=== PATIENT | male | born 1955 | race Caucasian/White ===

== ENCOUNTER 2017-03-05 08:46 | Emergency (ER) | payer OTHER ==
[2017-03-05 08:51] VITALS: RESP 16
--- NOTE | 2017-03-05 09:08 | EDPHY ---
H & P HPI/ROS: Chief complaint: Left foot injury History of present illness: This is a 61-year-old male who presents to the emergency department for left foot injury. Patient reports injury occurred approximately 2 days ago. He reports he stepped into a hole and twisted his foot. Since then he has had pain. Worse with any sort of twisting motion of the foot. He denies other associated signs or symptoms including no open wounds , no paresthesias and no abnormal coolness to the lower extremity. No other injuries reported. Smoking Status: Never smoked Physical Exam: General appearance: Alert, nontoxic Musculoskeletal: Mild tenderness along the 5th metatarsal proximally and anterior to the lateral malleolus. He is moving the ankle well. He is moving the digits of the foot well. He has good strength in the digits and ankle. The rest the left lower extremities unremarkable. Vascular exam: Normal pulses and capillary refill in the foot Neurologic exam: The patient has normal sensation and motor function distal to the injury. Constitutional: Initial Vital Signs Temperature (C) 36.4 C 03/05/17 08:48 Heart Rate 82 03/05/17 08:48 Respiratory Rate 16 03/05/17 08:48 Blood Pressure 124/81 H 03/05/17 08:48 O2 Sat (%) 96 03/05/17 08:48 O2 Delivery Mode Room Air Allergies/Adverse Reactions: No Known Allergies Allergy (Unverified 09/30/15 07:06) Home Medications: Medication Instructions Recorded Ondansetron Odt [Zofran Odt 4 mg 4 mg PO TID PRN 09/30/15 (*)] Sildenafil Citrate [Viagra] 100 mg PO PRN PRN 09/30/15 oxyCODONE/APAP 5/325 [Percocet] 1 - 2 tab PO Q4-6PRN PRN #11 tab 01/23/16 MDM/Departure - MDM Imaging Results: Imaging Impressions Foot X-Ray 03/05/17 09:02 Impression: Negative for acute fracture with degenerative changes and healed remote tibial and fibular fractures. Left Foot, Three Views Clinical Indications: Pain following trauma. Findings: A fracture is not identified. Prominent degenerative changes with sclerosis and joint space loss are seen involving the articulation of the calcaneus with the cuboid. This does correlate to the region of symptomatology. There is an element of osseous demineralization. Mild soft tissue swelling is noted. Impression: 1. Left foot negative for fracture. 2. Degenerative changes noted in the symptomatic region of the articulation of the calcaneus with the cuboid. With the degenerative changes in the region, undisplaced fracture cannot be entirely excluded. Results called and discussed with KARTHIK Carranza on 03/05/2017 at 10:54 a.m. Ankle X-Ray 03/05/17 09:05 Impression: Negative for acute fracture with degenerative changes and healed remote tibial and fibular fractures. Left Foot, Three Views Clinical Indications: Pain following trauma. Findings: A fracture is not identified. Prominent degenerative changes with sclerosis and joint space loss are seen involving the articulation of the calcaneus with the cuboid. This does correlate to the region of symptomatology. There is an element of osseous demineralization. Mild soft tissue swelling is noted. Impression: 1. Left foot negative for fracture. 2. Degenerative changes noted in the symptomatic region of the articulation of the calcaneus with the cuboid. With the degenerative changes in the region, undisplaced fracture cannot be entirely excluded. Results called and discussed with KARTHIK Carranza on 03/05/2017 at 10:54 a.m. Imaging: Discussed imaging studies w/ call out operator Radiologist, I viewed and interpreted images myself ED Course/Re-evaluation: Patient seen under the supervision of my secondary supervising physician Dr. Enrique Delvalle. Patient presents to the emergency department for left foot and ankle injury. The lower extremity is neurovascularly intact. X-rays are obtained and no acute injuries are noted although this is somewhat limited given significant bony deformity from previous injuries. Patient is wearing a very sturdy hiking boot, I asked him to continue to use these for support of his injury. He is asked to follow up with worker's compensation or orthopedics for recheck. Home care is discussed. Return precautions are given. Patient voiced understanding and agreement with plan. Differential Diagnosis: Included but not limited to contusion, sprain or strain, bony fracture, joint dislocation - Depart Disposition: Home, Routine, Self-Care Clinical Impression: Foot sprain Qualifiers: Encounter type: initial encounter Laterality: left Qualified Code(s): S93.602A - Unspecified sprain of left foot, initial encounter Condition: Good Instructions: Foot Sprain (ED) Additional Instructions: Follow-up with orthopedics for continued evaluation and care Use ibuprofen 600 mg 3 times a day for the next 2-3 days for symptom control If symptoms worsen or new symptoms develop return to the emergency room for recheck Referrals: Joshua Castellanos [Primary Care Provider] - As per Instructions Ritesh Brown MD [Medical Doctor] - As per Instructions
[2017-03-05 11:12] VITALS: BP 117/77; PULSE 57; TEMP 98.1; O2SAT 97
== END 2017-03-05 11:12 | disposition home or self-care (01) ==
DX: S93.602A Unspecified sprain of left foot, initial encounter (principal); W18.42XA Slipping, tripping and stumbling without falling due to stepping into hole or opening, initial encounter; Y92.69 Other specified industrial and construction area as the place of occurrence of the external cause; Y99.0 Civilian activity done for income or pay; Y93.89 Activity, other specified

== ENCOUNTER 2017-04-25 14:48 | Emergency (ER) | payer OTHER ==
[2017-04-25 14:54] VITALS: RESP 16
--- NOTE | 2017-04-25 15:49 | EDPHY ---
H & P Stated Complaint: L KNEE PAIN/SWELLING Time Seen by Provider: 04/25/17 15:19 HPI/ROS: CHIEF COMPLAINT: Left leg redness and swelling HISTORY OF PRESENT ILLNESS: The patient presents to the ED with a 1 day history of left anterior leg redness and swelling with associated left calf pain. The patient denies any history of fall or trauma or overuse. He has no history of gout. The patient states the pain is below his joint. He is able to bear weight. It is worsened with palpation and slightly worsened with ambulation. He denies fever. The patient has had a history of a ankle injury which is scheduled to undergo surgery in January. He has had some decreased range of motion secondary to that injury. The patient denies history of diabetes , immunosuppression or other significant past medical history. The patient states his symptoms are moderate and worsened with movement. REVIEW OF SYSTEMS: A comprehensive 10 point review of systems is otherwise negative aside from elements mentioned in the history of present illness. Source: Patient - Personal History Current Tetanus/Diphtheria Vaccine: Yes Tetanus Vaccine Date: within 10 yrs - Medical/Surgical History Hx Asthma: No Hx Chronic Respiratory Disease: No Hx Diabetes: No Hx Cardiac Disease: No Hx Renal Disease: No Hx Cirrhosis: No Hx Alcoholism: No Hx HIV/AIDS: No Hx Splenectomy or Spleen Trauma: No Other PMH: PSH: hernia; L leg fx; B eye. PMH: diverticulitis - Social History Smoking Status: Never smoked - Physical Exam Exam: General Appearance: Alert, no distress Eyes: Pupils equal and round no pallor or injection ENT, Mouth: Mucous membranes moist Respiratory: There are no retractions, lungs are clear to auscultation Cardiovascular: Regular rate and rhythm Gastrointestinal: Abdomen is soft and nontender, no masses, bowel sounds normal Neurological: A&O, normal motor function, normal sensory exam, normal cranial nerves Skin: Erythematous changes noted to the anterior aspect of the left tib fib below the insertion of the patella and adjacent to the patella tendon. Musculoskeletal: Fairly normal range of motion noted to the left knee, no significant joint effusion, no joint line tenderness Extremities: Left calf tenderness to palpation Constitutional: Initial Vital Signs Temperature (C) 37 C 04/25/17 14:53 Heart Rate 103 H 04/25/17 14:53 Respiratory Rate 16 04/25/17 14:53 Blood Pressure 109/82 H 04/25/17 14:53 O2 Sat (%) 95 04/25/17 14:53 O2 Delivery Mode Room Air Allergies/Adverse Reactions: No Known Allergies Allergy (Unverified 09/30/15 07:06) Home Medications: Medication Instructions Recorded Cephalexin [Keflex] 500 mg PO QID #28 cap 04/25/17 Medical Decision Making - Diagnostics Imaging Results: Imaging Impressions Extremity Venous Study 04/25/17 15:45 Impression: 1. No evidence of deep vein thrombosis. 2. Small Ang's cyst. Findings discussed with Pato Justice 04/25/2017 at 17:13. ED Course/Re-evaluation: The patient presents to the ED for evaluation of right calf pain and swelling erythema. The patient is noted to have no clinical evidence of a septic arthritis and has normal range of motion of his knee. The patient was taken for right lower extremity ultrasound which demonstrates evidence of a small Ang cyst. The patient had inflammatory markers drawn which are within normal limits. The patient is afebrile. The patient was treated with NSAIDs in the emergency department. The patient presents to the ED with infrapatellar redness and tenderness along the anterior aspect of his goldman. There is no obvious abscess or fluctuance. The patient has nothing to suggest a septic arthritis or prepatellar bursitis. The patient will be started on oral antibiotics. I did khangbside Dr. De La Torre from Orthopedic surgery who will check the patient in his office tomorrow. The patient will be instructed to return to the ED for any significant change in his clinical condition. Dr. De La Torre informs me that he can see the patient in his office at 1:00 p.m. tomorrow. The patient will call at 8:30 a.m. in the morning to confirm the appointment. Differential Diagnosis: Differential diagnosis considered includes Ang cyst, DVT, cellulitis, abscess , septic arthritis, pseudogout - Data Points Laboratory Results: Laboratory Results 04/25/17 16:05 04/25/17 15:44 04/25/17 04/25/17 16:05 15:44 WBC 9.33 10^3/uL 10^3/uL (3.80-9.50) RBC 4.61 10^6/uL 10^6/uL (4.40-6.38) Hgb 14.5 g/dL g/dL (13.7-17.5) Hct 41.9 % % (40.0-51.0) MCV 90.9 fL fL (81.5-99.8) MCH 31.5 pg pg (27.9-34.1) MCHC 34.6 g/dL g/dL (32.4-36.7) RDW 13.3 % % (11.5-15.2) Plt Count 254 10^3/uL 10^3/uL (150-400) MPV 8.5 fL L fL (8.7-11.7) Neut % (Auto) 66.4 % % (39.3-74.2) Lymph % (Auto) 21.2 % % (15.0-45.0) Lipscomb % (Auto) 10.2 % % (4.5-13.0) Eos % (Auto) 1.2 % % (0.6-7.6) Baso % (Auto) 0.6 % % (0.3-1.7) Nucleat RBC Rel Count 0.0 % % (0.0-0.2) Absolute Neuts (auto) 6.19 10^3/uL 10^3/uL (1.70-6.50) Absolute Lymphs (auto) 1.98 10^3/uL 10^3/uL (1.00-3.00) Absolute Monos (auto) 0.95 10^3/uL H 10^3/uL (0.30-0.80) Absolute Eos (auto) 0.11 10^3/uL 10^3/uL (0.03-0.40) Absolute Basos (auto) 0.06 10^3/uL 10^3/uL (0.02-0.10) Absolute Nucleated RBC 0.00 10^3/uL 10^3/uL (0-0.01) Immature Gran % 0.4 % % (0.0-1.1) Immature Gran # 0.04 10^3/uL 10^3/uL (0.00-0.10) ESR 10 MM/HR MM/HR (0-20) Sodium 142 mEq/L mEq/L (134-144) Potassium 4.9 mEq/L mEq/L (3.5-5.2) Chloride 108 mEq/L mEq/L (97-110) Carbon Dioxide 19 mEq/l L mEq/l (22-31) Anion Gap 15 mEq/L mEq/L (8-16) BUN 16 mg/dL mg/dL (7-23) Creatinine 0.7 mg/dL mg/dL (0.7-1.3) Estimated GFR > 60 Glucose 88 mg/dL mg/dL (70-100) Calcium 9.4 mg/dL mg/dL (8.5-10.4) C-Reactive Protein 7.9 mg/L mg/L (<10.0) Specimen Hemolysis 213 Medications Given: Discontinued Medications Cephalexin HCl (Keflex) 500 mg PO EDNOW ONE PRN Reason: Protocol Stop: 04/25/17 18:10 Last Admin: 04/25/17 18:21 Dose: 500 mg Ibuprofen (Motrin) 600 mg PO EDNOW ONE Stop: 04/25/17 17:32 Last Admin: 04/25/17 17:38 Dose: 600 mg Ketorolac Tromethamine (Toradol) 30 mg IVP EDNOW ONE Stop: 04/25/17 17:19 Last Admin: 04/25/17 17:31 Dose: Not Given Departure - Departure Disposition: Home, Routine, Self-Care Clinical Impression: Cellulitis Condition: Good Instructions: Cellulitis (ED) Additional Instructions: 1. Take Ibuprofen or Motrin 600 mg by mouth three times a day. 2. Please return to the ED for any worsening symptoms, increasing redness, increasing pain, inability to bear weight or other concerns. 3. Please begin antibiotics as directed. 4. Please contact the orthopedic surgeon you have been referred to, Dr. Mata De La Torre, tomorrow at 8:30 a.m. in the morning. They are expecting your telephone call and will make arrangements to evaluate you at 1:00 p.m.. Referrals: Mata De La Torre MD [Medical Doctor] - As per Instructions Prescriptions: Cephalexin [Keflex] 500 mg PO QID #28 cap
[2017-04-25 16:22] LABS: % IMMATURE GRANULYOCYTES 0.4 % (0.0-1.1); ABSOLUTE IMMATURE GRANULOCYTES 0.04 10^3/uL (0.00-0.10); ADD DIFF? NO; ADD MORPH? NO; ADD SCAN? NO; ATYPICAL LYMPHOCYTE FLAG 0 (0-99); FRAGMENT RBC FLAG 0 (0-99); HEMATOCRIT 41.9 % (40.0-51.0); HEMOGLOBIN 14.5 g/dL (13.7-17.5); LEFT SHIFT FLG 0 (0-99); LIPEMIA HEMOLYSIS FLAG 90 (0-99); MEAN CELL HEMOGLOBIN 31.5 pg (27.9-34.1); MEAN CELL HEMOGLOBIN CONCENTR. 34.6 g/dL (32.4-36.7); MEAN CELL VOLUME 90.9 fL (81.5-99.8); MEAN PLATELET VOLUME 8.5 fL (8.7-11.7); PLATELET CLUMPS FLAG 0 (0-99); PLATELET COUNT 254 10^3/uL (150-400); RED BLOOD CELL COUNT 4.61 10^6/uL (4.40-6.38); RED CELL DISTRIBUTION WIDTH 13.3 % (11.5-15.2)
[2017-04-25 16:38] LABS: SEDIMENTATION RATE 10 MM/HR (0-20)
[2017-04-25 16:42] LABS: ANION GAP 15 mEq/L (8-16); C-REACTIVE PROTEIN 7.9 mg/L (<10.0); CALCIUM 9.4 mg/dL (8.5-10.4); CARBON DIOXIDE 19 mEq/l (22-31); CHLORIDE 108 mEq/L (97-110); CREATININE 0.7 mg/dL (0.7-1.3); GLOMERULAR FILTRATION RATE > 60; GLUCOSE 88 mg/dL (70-100); POTASSIUM 4.9 mEq/L (3.5-5.2); SODIUM 142 mEq/L (134-144)
[2017-04-25 16:53] LABS: SPECIMEN HEMOLYSIS 213
[2017-04-25] MEDS ORDERED: KETOROLAC 30 MG/1 ML SDV IVP ONE (17:18)
[2017-04-25] MEDS ORDERED: IBUPROFEN 600 MG TAB PO ONE (17:31)
[2017-04-25] MEDS ORDERED: CEPHALEXIN 500 MG CAP PO ONE ×2 (18:09→18:31)
[2017-04-25 18:10] VITALS: O2SAT 98
[2017-04-25 18:42] VITALS: BP 135/76; PULSE 81; TEMP 97.9
== END 2017-04-25 18:41 | disposition home or self-care (01) ==
DX: L03.116 Cellulitis of left lower limb (principal)

== ENCOUNTER 2017-08-03 17:30 | Emergency (ER) | payer OTHER ==
[2017-08-03 17:41] VITALS: PULSE 85; RESP 16; TEMP 98.4; O2SAT 96
[2017-08-03 17:42] VITALS: BP 115/80
--- NOTE | 2017-08-03 17:57 | EDPHY ---
H & P Stated Complaint: SENT TO ED POST US FOR BLOOD CLOT Time Seen by Provider: 08/03/17 17:55 HPI/ROS: HPI: This is a 61-year-old male who presents with Chief Complaint: SENT TO ED POST US FOR BLOOD CLOT Location: Left calf Quality: Swelling Duration: 2 weeks Signs and Symptoms: No bleeding, no radiation, no numbness, no weakness, no tingling, no incontinence, no decreased range of motion, + swelling, + pain Timing: Gradual onset Severity: Moderate Context: Patient reports that approximately 3 weeks ago he sustained an injury while at work to the ligament in his left ankle. Two weeks ago he had ligament repair surgery in [place], [place] by Dr. Hill. Today his cast was removed and he was placed in a Alvarez boot, and reported to Dr. Hill that his calf was swollen and he felt constant, nonradiating moderate pain behind his left knee. He was sent to outpatient radiology for ultrasound which shows focal thrombus in the proximal posterior tibial vein of the proximal left calf. He does not have health insurance but is under workmen's Comp at this time. Modifying Factors: See above Comment: ROS: see HPI Constitutional: No fever, no chills, no weight loss Eyes: No blurred vision Respiratory: No shortness of breath, no cough Cardiovascular: No chest pain Gastrointestinal: No nausea, no vomiting no diarrhea Genitourinary: No dysuria Extremities: No myalgias Neurologic: No weakness, no numbness Skin: No rashes Hematologic: No bruising, no bleeding MEDICAL/SURGICAL/SOCIAL HISTORY: PSH: hernia; L leg fx; B eye PMH: diverticulitis Social history: Employed CONSTITUTIONAL: Well-developed well-nourished adult white male, awake and alert , no obvious distress HEENT: Atraumatic and normocephalic, PERRL, EOMI. Tympanic membranes clear. Oropharynx clear, no exudate and moist pink mucosa. Airway patent. No lymphadenopathy. No meningismus. Cardiovascular: Normal S1/S2, regular rate, regular rhythm, without murmur rub or gallop. PULMONARY/CHEST: Symmetrical and nontender. Clear to auscultation bilaterally. Good air movement. No accessory muscle usage. ABDOMEN: Soft, nondistended, nontender, no rebound, no guarding, no peritoneal signs, no masses or organomegaly. No CVAT. EXTREMITIES: 2/2 pulses, left lower leg in Alvarez boot; removed and shows positive Homans sign; left calf larger than the right calf; no palpable cord. Achilles tendon intact. Left KNEE: no effusion, no medial and lateral joint line tenderness, full extension to 180, flexion to 120, no pain with varus and valgus exam. strength 5/5, no deformities, no clubbing, no cyanosis or edema. NEUROLOGICAL: no focal neuro deficits. GCS 15. SKIN: Warm and dry, no erythema. no rash. Good capillary refill. Source: Patient Exam Limitations: No limitations - Personal History Current Tetanus Diphtheria and Acellular Pertussis (TDAP): Yes Tetanus Vaccine Date: within 10 yrs - Medical/Surgical History Hx Asthma: No Hx Chronic Respiratory Disease: No Hx Diabetes: No Hx Cardiac Disease: No Hx Renal Disease: No Hx Cirrhosis: No Hx Alcoholism: No Hx HIV/AIDS: No Hx Splenectomy or Spleen Trauma: No Other PMH: PSH: hernia; L leg fx; B eye. PMH: diverticulitis - Social History Smoking Status: Never smoked Constitutional: Initial Vital Signs Temperature (C) 36.9 C 08/03/17 17:37 Heart Rate 85 08/03/17 17:37 Respiratory Rate 16 08/03/17 17:37 Blood Pressure 115/80 08/03/17 17:37 O2 Sat (%) 96 08/03/17 17:37 O2 Delivery Mode Room Air Allergies/Adverse Reactions: No Known Allergies Allergy (Unverified 08/03/17 17:42) Home Medications: Medication Instructions Recorded Cephalexin [Keflex] 500 mg PO QID #28 cap 04/25/17 Asa 08/03/17 Oxycodone 08/03/17 Rivaroxaban [Xarelto] 1 each PO CONT #1 tab.ds.pk 08/03/17 Medical Decision Making - Diagnostics Imaging Results: Imaging Impressions Extremity Venous Study 08/03/17 16:00 Impression: 1. Focal thrombus involving posterior tibial veins in the proximal calf. No additional evidence of DVT left lower extremity. Findings discussed with Latonya physician geothermal system installer working with ROCCO Doyle at 17:12 hour, 08/03/2017. ED Course/Re-evaluation: Ultrasound report reviewed. provoked DVT I-STAT creatinine level obtained and 0.8 Patient refers oral therapy; Xarelto 15 mg and prepack given. No signs of neurovascular compromise/tenting of skin/compartment syndrome/ extremities and joints examined above and below area of concern and are neurovascularly intact/cellulitis/hypoxia/respiratory distress. Differential Diagnosis: ED differential diagnosis includes but is not limited to chronic kidney disease , DVT. Departure - Departure Disposition: Home, Routine, Self-Care Clinical Impression: Left leg DVT Qualifiers: Affected thrombotic vein of extremity: tibial Chronicity: acute Qualified Code( s): I82.442 - Acute embolism and thrombosis of left tibial vein Condition: Good Instructions: Rivaroxaban (By mouth), Deep Venous Thrombosis (ED) Additional Instructions: Follow-up with Orthopedics as previously planned. Take Xarelto 15 mg orally twice daily x3 weeks and then 20 mg daily for 3-6 months. The length of time to take Xarelto will be determined by primary care provider with consultation from Orthopedics. The x-rays obtained in the emergency department today demonstrate no evidence of an obvious fracture. Sometimes fractures are not obvious on the initial set of x-rays performed in the ED. For this reason, you should have repeat x-rays performed in 7-10 days if you are having any pain exclude the possibility of an occult fracture. Referrals: AMIRA HILL [Non Staff Provider ()] - As per Instructions Prescriptions: Rivaroxaban [Xarelto] 1 each PO CONT #1 tab.ds.pk
[2017-08-03] MEDS ORDERED: RIVAROXABAN 15 MG TAB PO ONE (18:23)
== END 2017-08-03 18:30 | disposition home or self-care (01) ==
DX: I82.442 Acute embolism and thrombosis of left tibial vein (principal); Z79.82 Long term (current) use of aspirin
CPT/HCPCS: 82947-QW

== ENCOUNTER 2017-10-24 17:17 | Emergency (ER) | payer OTHER ==
[2017-10-24 17:28] VITALS: TEMP 97.9
--- NOTE | 2017-10-24 17:31 | EDPHY ---
H & P Stated Complaint: LLE pain Source: Patient Exam Limitations: No limitations - Personal History Current Tetanus/Diphtheria Vaccine: Yes Current Tetanus Diphtheria and Acellular Pertussis (TDAP): Yes Tetanus Vaccine Date: within 10 yrs - Medical/Surgical History Hx Asthma: No Hx Chronic Respiratory Disease: No Hx Diabetes: No Hx Cardiac Disease: No Hx Renal Disease: No Hx Cirrhosis: No Hx Alcoholism: No Hx HIV/AIDS: No Hx Splenectomy or Spleen Trauma: No Other PMH: PSH: hernia; L leg fx; B eye, L leg DVT. PMH: diverticulitis - Social History Smoking Status: Never smoked Time Seen by Provider: 10/24/17 17:30 HPI/ROS: HPI: This is a 61-year-old male who presents with Chief Complaint: LLE pain Location: Left foot Quality: Pain Duration: Since this morning Signs and Symptoms: No bleeding, no radiation, no numbness, no weakness, no tingling, no incontinence, + decreased range of motion, no swelling, + pain Timing: Acute on chronic Severity: 05/13 Context: Patient presents with complaints of left foot pain primarily on the lateral aspect and the ball of his foot since waking up this morning. He reports that approximately 3 months ago he had peroneal tendon tear and status post repair from a workman's comp injury performed by Dr. Hill out of [facility]. Patient has a history of DVT secondary to nerve block with orthopedic surgery but is no longer taking any anticoagulation. He does not want any opiate medications. He denies any recent activity/trauma. Denies fever/paresthesias/skin color changes. Patient saw Dr. Hill approximately 7 days ago and was told that he was making progress improving. He has a physical therapy poorly appointment tomorrow morning. Takes Lyrica for nerve pain but is not helping this pain at all. Patient feels like he is having a muscle spasm or cramp in his left foot Modifying Factors: Lyrica no relief Comment: ROS: see HPI Constitutional: No fever, no chills, no weight loss Eyes: No blurred vision Respiratory: No shortness of breath, no cough Cardiovascular: No chest pain Gastrointestinal: No nausea, no vomiting no diarrhea Genitourinary: No dysuria Extremities: No myalgias Neurologic: No weakness, no numbness Skin: No rashes Hematologic: No bruising, no bleeding MEDICAL/SURGICAL/SOCIAL HISTORY: PSH: hernia repair; L leg fx; B eye, L leg DVT PMH: diverticulitis Social history: Current disabled due to workman's Comp injury CONSTITUTIONAL: Nontoxic-appearing polite and cooperative adult white male, awake and alert, no obvious distress HEENT: Atraumatic and normocephalic, PERRL, EOMI. Tympanic membranes clear. Oropharynx clear, no exudate and moist pink mucosa. Airway patent. No lymphadenopathy. No meningismus. Cardiovascular: Normal S1/S2, tachycardia, regular rhythm, without murmur rub or gallop. PULMONARY/CHEST: Symmetrical and nontender. Clear to auscultation bilaterally. Good air movement. No accessory muscle usage. ABDOMEN: Soft, nondistended, nontender, no rebound, no guarding, no peritoneal signs, no masses or organomegaly. No CVAT. EXTREMITIES: 2/2 DP and PT pulses, pedal strength 5/5, left foot: Well-healed lateral incision with mild induration but no drainage/fluctuance/warmth. Toes are actively cramping. Mild calf tenderness. Left Ankle: Plantar flexion to 50 , dorsiflexion to 20. Foot inversion to 35 degree. No tenderness/swelling Anterior talofibular ligament. No tenderness/swelling Calcaneofibular ligament , no tenderness/swelling posterior talofibular ligament, no tenderness/swelling posterior inferior tibiofibular ligament. Achilles tendon intact. no deformities , no clubbing, no cyanosis or edema. NEUROLOGICAL: no focal neuro deficits. GCS 15. SKIN: Warm and dry, no erythema. no rash. Good capillary refill. (Jocelin,Terra) Constitutional: Initial Vital Signs Temperature (C) 36.6 C 10/24/17 17:25 Heart Rate 132 H 10/24/17 17:25 Respiratory Rate 16 10/24/17 17:25 Blood Pressure 142/101 H 10/24/17 17:25 O2 Sat (%) 96 10/24/17 17:25 O2 Delivery Mode Room Air Allergies/Adverse Reactions: No Known Allergies Allergy (Unverified 08/03/17 17:42) Home Medications: Medication Instructions Recorded Aspirin EC [Aspirin EC 81 mg (*)] 81 mg PO DAILY #20 tab 10/24/17 Lyrica 10/24/17 Metaxalone [Skelaxin 800 mg (*)] 800 mg PO TID PRN #12 tab 10/24/17 Medical Decision Making - Diagnostics Imaging Results: Imaging Impressions Extremity Venous Study 10/24/17 17:37 Impression: 1. No evidence of deep vein thrombosis in the left lower extremity. 2. Superficial thrombophlebitis in the left calf. Foot X-Ray 10/24/17 17:37 Impression: 1. Negative for fracture. 2. See above report for additional findings. If symptoms persist, MRI could be considered for further evaluation. ED Course/Re-evaluation: Left foot x-ray, left lower extremity ultrasound, oral medications ordered Vital signs reviewed upon arrival and show tachycardia. Patient given Celebrex and PO Valium 5 mg No signs of neurovascular compromise/tenting of skin/compartment syndrome/ extremities and joints examined above and below area of concern and are neurovascularly intact/cellulitis/thrombophlebitis. Left foot x-ray my read shows no signs of fracture/dislocation, + degenerative changes Called by radiologist who advised the left lower extremity ultrasound shows no deep venous thrombosis does shows superficial thrombosis in the left calf in the gastrocnemius vein. After further questioning patient reports he is supposed to be taking baby aspirin daily which he is not. I have encouraged him to do this. He is also supposed to be wearing compression stockings which he is not and I have also encouraged him to do that as well. Vital signs repeated at discharge in have significantly improved. This patient was seen under the supervision of my primary supervising physician. I evaluated care for this patient independently. (Sandie Monreal) Differential Diagnosis: differential diagnosis includes but is not limited to muscle spasm, postoperative pain, deep venous thrombosis, musculoskeletal strain. (Sandie Monreal) - Data Points Medications Given: Discontinued Medications Celecoxib (Celebrex) 100 mg PO ONCE ONE Stop: 10/24/17 17:39 Last Admin: 10/24/17 18:13 Dose: 100 mg Diazepam (Valium) 5 mg PO EDNOW ONE Stop: 10/24/17 17:38 Last Admin: 10/24/17 17:47 Dose: 5 mg Departure - Departure Disposition: Home, Routine, Self-Care Clinical Impression: Status post left foot surgery, Chronic superficial venous thrombosis of left lower extremity Condition: Good Instructions: Pain Management After Surgery (DC) Additional Instructions: Apply moist, warm heat to the area of discomfort. Please take your baby aspirin daily as directed previously for superficial thrombosis in your left calf. Wear compression stockings while ambulatory. Elevate your legs to decrease swelling. Limit your salt intake. Use muscle relaxers every 8 hr as needed for muscle spasm. Please keep follow-up appointment tomorrow with your physical therapist and Orthopedist. Referrals: Zac Ham MD [Primary Care Provider] - As per Instructions AMIRA HILL [Non Staff Provider ()] - As per Instructions Prescriptions: Aspirin EC [Aspirin EC 81 mg (*)] 81 mg PO DAILY #20 tab Metaxalone [Skelaxin 800 mg (*)] 800 mg PO TID PRN #12 tab PRN Reason: Spasms
[2017-10-24] MEDS ORDERED: DIAZEPAM 5 MG TAB PO ONE (17:37)
[2017-10-24 19:05] VITALS: BP 117/87; PULSE 97; RESP 18; O2SAT 94
== END 2017-10-24 19:24 | disposition home or self-care (01) ==
DX: I82.812 Embolism and thrombosis of superficial veins of left lower extremity (principal); Z98.890 Other specified postprocedural states

== ENCOUNTER 2017-10-25 03:24 | Emergency (ER) | payer OTHER ==
[2017-10-25 03:33] VITALS: BP 125/90; PULSE 89; RESP 19; TEMP 98.2; O2SAT 95
--- NOTE | 2017-10-25 03:39 | EDPHY ---
H & P Stated Complaint: L left/ankle pain, worsening pain HPI/ROS: HPI CHIEF COMPLAINT: LLE PAIN HISTORY OF PRESENT ILLNESS: Patient is 61-year-old male, presents emergency room with left lower extremity pain. Patient was seen here earlier tonight had an x-ray of the left foot, additionally had an ultrasound this showed superficial thrombophlebitis. But no DVT. Patient presents back to the emergency room this evening for left lower extremity pain. Patient reports to me that he was unable to get his aspirin or Skelaxin prescription filled tonight as the pharmacy was closed and he did not want to go to any other pharmacy. He states he is not take any pain med this evening comes back with left foot pain. He states he has chronic left foot pain from a surgery to repair his peroneal tendon injury. I did review his recent ER visit. At time he had unremarkable foot x-ray, ultrasound that showed a superficial thrombophlebitis. However no DVT. He denies any further swelling or pain in his calf. His main complaint is left lateral foot pain. Upon arrival to the emergency room he asked me if I can give him narcotic pain medicine explained I cannot do this. I am more than happy to give him anti- inflammatory pain medicine here. He has agreed for this. Past Medical History: diverticulitis, left lower extremity pain Past Surgical History: Remote history of left lower extremity are foot surgery. Social History: Denies daily use of drugs alcohol tobacco. Family History: Noncontributory. ROS REVIEW OF SYSTEMS: A comprehensive 10 point review of systems is otherwise negative aside from elements mentioned in the history of present illness. Exam Constitutional triage nursing summary reviewed, vital signs reviewed, awake/ alert. Eyes normal conjunctivae and sclera, EOMI, PERRLA. HENT normal inspection, atraumatic, moist mucus membranes, no epistaxis, neck supple/ no meningismus, no raccoon eyes. Respiratory clear to auscultation bilaterally, normal breath sounds, no respiratory distress, no wheezing. Cardiovascular rate normal, regular rhythm, no murmur, no edema, distal pulses normal. Gastrointestinal soft, non-tender, no rebound, no guarding, normal bowel sounds, no distension, no pulsatile mass. Genitourinary no CVA tenderness. Musculoskeletal left foot: The left foot is neurovascular intact. Good distal pulse. Good cap refill. Tender palpation over the lateral left foot he inferior to the left lateral malleolus. Very mild erythema however he tells me this is chronically here for the past 90 days. No new erythema or swelling. He denies any fever. No drainage. no midline vertebral tenderness, full range of motion, no calf swelling, no tenderness of extremities, no meningismus, good pulses, neurovascularly intact. Skin pink, warm, & dry, no rash, skin atraumatic. Neurologic awake, alert and oriented x 3, AAOx3, moves all 4 extremities equally, motor intact, sensory intact, CN II-XII intact, normal cerebellar, normal vision, normal speech. Psychiatric normal mood/affect. Heme/Lymph/Immune no lymphadenopathy. Differential Diagnosis: Includes but is not limited to in a particular order: Chronic left foot pain, acute on chronic left foot pain, pain from superficial thrombophlebitis, infection. Medical Decision Making: Plan for this patient he was just here in emergency room earlier and had a workup. I reviewed that ER record. I will give a dose of 800 mg Motrin here in urgency for pain control which he is agreeable for. I recommend that he elevates his foot rest, ice it. Follows up with his foot surgeon or workman's Comp. He understands do so. Additionally return precautions discussed. Return if worsening symptoms questions or concerns. Patient did request narcotic pain medicine which I have declined to give him. He is also driving home. I have given him a dose of 800 mg of Motrin. I encouraged him to get his prescriptions filled. Source: Patient - Personal History Tetanus Vaccine Date: within 10 yrs - Medical/Surgical History Hx Asthma: No Hx Chronic Respiratory Disease: No Hx Diabetes: No Hx Cardiac Disease: No Hx Renal Disease: No Hx Cirrhosis: No Hx Alcoholism: No Hx HIV/AIDS: No Hx Splenectomy or Spleen Trauma: No Other PMH: PSH: hernia; L leg fx; B eye, L leg DVT. PMH: diverticulitis - Social History Smoking Status: Never smoked Constitutional: Initial Vital Signs Temperature (C) 36.8 C 10/25/17 03:26 Heart Rate 89 10/25/17 03:26 Respiratory Rate 19 10/25/17 03:26 Blood Pressure 125/90 H 10/25/17 03:26 O2 Sat (%) 95 10/25/17 03:26 O2 Delivery Mode Room Air Allergies/Adverse Reactions: No Known Allergies Allergy (Verified 10/25/17 03:25) Home Medications: Medication Instructions Recorded Aspirin EC [Aspirin EC 81 mg (*)] 81 mg PO DAILY #20 tab 10/24/17 Lyrica 10/24/17 Metaxalone [Skelaxin 800 mg (*)] 800 mg PO TID PRN #12 tab 10/24/17 Departure - Departure Disposition: Home, Routine, Self-Care Clinical Impression: Foot pain Condition: Good Instructions: Arthralgia (ED) Additional Instructions: 1. Follow up with your primary care doctor. 2. Please get her prescriptions filled. 3. Return emergency room if you have worsening symptoms questions or concerns. Referrals: Zac Ham MD [Primary Care Provider] - As per Instructions
[2017-10-25] MEDS ORDERED: IBUPROFEN 800 MG TAB PO ONE ×2 (03:46→03:48)
== END 2017-10-25 04:06 | disposition home or self-care (01) ==
DX: M79.672 Pain in left foot (principal); Z79.82 Long term (current) use of aspirin

== ENCOUNTER 2017-10-27 00:39 | Emergency (ER) | payer OTHER ==
[2017-10-27 00:48] VITALS: TEMP 99.3
--- NOTE | 2017-10-27 01:17 | EDPHY ---
H & P Stated Complaint: sympathetic nerve block for L foot this am, since pain increasing dramatica Time Seen by Provider: 10/27/17 00:57 HPI/ROS: HPI The patient presents with left foot pain which he has had since July when he had a tendon repair performed at [facility] in [place]. This pain became worse today, several hours ago after being seen at the [facility] and having a sympathetic nerve block performed in his lower lumbar spine by Dr. Mendiola. He says over the last 1 day he has had increasing swelling and redness of his lateral left foot as well. He denies any fevers or chills, nausea or vomiting. He denies any new injury. He had a provoked DVT which was treated with Xarelto, currently taking only aspirin. He also says he was diagnosed with cellulitis of the foot and has been on antibiotics, last about a month ago. He is currently taking Lyrica and Skelaxin for his pain without much improvement in his symptoms.. REVIEW OF SYSTEMS Constitutional: No fever, no chills. Eyes: No discharge. ENT: No sore throat. Cardiovascular: No chest pain, no palpitations. Respiratory: No cough, no shortness of breath. Gastrointestinal: No abdominal pain, no vomiting. Genitourinary: No hematuria. Musculoskeletal: No back pain. Skin: No rashes. Neurological: No headache. PMHx: Left foot tendon repair performed in July PHYSICAL General Appearance: Alert, no distress Eyes: Pupils equal and round no pallor or injection ENT, Mouth: Mucous membranes moist Respiratory: There are no retractions, lungs are clear to auscultation Cardiovascular: Regular rate and rhythm Gastrointestinal: Abdomen is soft and non-tender, no masses, bowel sounds normal Neurological: A&O, moves all extremities Skin: Warm and dry, no rashes Musculoskeletal: Neck is supple non tender Extremities: Left foot is erythematous on the lateral aspect and tender to palpation, there is edema throughout the foot without any leg edema, foot is slightly warm Psychiatric: Patient is oriented X 3, there is no agitation Source: Patient Exam Limitations: No limitations - Personal History Tetanus Vaccine Date: within 10 yrs - Medical/Surgical History Hx Asthma: No Hx Chronic Respiratory Disease: No Hx Diabetes: No Hx Cardiac Disease: No Hx Renal Disease: No Hx Cirrhosis: No Hx Alcoholism: No Hx HIV/AIDS: No Hx Splenectomy or Spleen Trauma: No Other PMH: PSH: hernia; L leg fx; B eye, L leg DVT. PMH: diverticulitis - Social History Smoking Status: Never smoked Constitutional: Initial Vital Signs Temperature (C) 37.4 C 10/27/17 00:43 Heart Rate 98 10/27/17 00:43 Respiratory Rate 18 10/27/17 00:43 Blood Pressure 115/70 10/27/17 00:43 O2 Sat (%) 95 10/27/17 00:43 O2 Delivery Mode Room Air Allergies/Adverse Reactions: No Known Allergies Allergy (Verified 10/27/17 00:48) Home Medications: Medication Instructions Recorded Aspirin EC [Aspirin EC 81 mg (*)] 81 mg PO DAILY #20 tab 10/24/17 Lyrica 10/24/17 Metaxalone [Skelaxin 800 mg (*)] 800 mg PO TID PRN #12 tab 10/24/17 Cephalexin [Keflex (*)] 500 mg PO Q6H #28 cap 10/27/17 Medical Decision Making - Diagnostics Imaging Results: DVT ultrasound left leg shows gastrocnemius thrombosis, unchanged from prior ultrasound 3 days ago, discussed with Dr. Martell of Radiology. Imaging: Discussed imaging studies w/ call worker person Radiologist Differential Diagnosis: 61-year-old male, status post left foot tendon repair of some sort performed in July of 2017, complicated by DVT, and ongoing pain, now presents with increasing pain. He says this is associated with increased redness, edema of the foot. However, he says his foot has had this appearance previously when he has seen the orthopedic doctor and he has been told that this is normal postoperative course. Differential diagnosis includes DVT, cellulitis, foot abscess, chronic pain. In the emergency department, labs were checked and did reveal a very mild leukocytosis. DVT ultrasound was repeated and showed same gastrocnemius thrombosis. Because of his leukocytosis, I will treat with antibiotics. I will give a dose of Ancef here followed by Keflex. There is no purulence of the wound. I have advised him that he should follow up with his orthopedic doctor to re-evaluate for any infection. He will need a repeat ultrasound in 1- 2 weeks to evaluate for any propagation of the gastrocnemius thrombosis. There is no compelling evidence that the patient needs anticoagulation currently for this sort of thrombosis. I have explained this to him. - Data Points Laboratory Results: Laboratory Results 10/27/17 01:17 10/27/17 01:17 10/27/17 10/27/17 01:17 01:17 WBC 11.47 10^3/uL H 10^3/uL (3.80-9.50) RBC 4.78 10^6/uL 10^6/uL (4.40-6.38) Hgb 15.2 g/dL g/dL (13.7-17.5) Hct 42.8 % % (40.0-51.0) MCV 89.5 fL fL (81.5-99.8) MCH 31.8 pg pg (27.9-34.1) MCHC 35.5 g/dL g/dL (32.4-36.7) RDW 13.1 % % (11.5-15.2) Plt Count 222 10^3/uL 10^3/uL (150-400) MPV 8.3 fL L fL (8.7-11.7) Neut % (Auto) 68.6 % % (39.3-74.2) Lymph % (Auto) 19.1 % % (15.0-45.0) Evans % (Auto) 10.8 % % (4.5-13.0) Eos % (Auto) 0.4 % L % (0.6-7.6) Baso % (Auto) 0.7 % % (0.3-1.7) Nucleat RBC Rel Count 0.0 % % (0.0-0.2) Absolute Neuts (auto) 7.86 10^3/uL H 10^3/uL (1.70-6.50) Absolute Lymphs (auto) 2.19 10^3/uL 10^3/uL (1.00-3.00) Absolute Monos (auto) 1.24 10^3/uL H 10^3/uL (0.30-0.80) Absolute Eos (auto) 0.05 10^3/uL 10^3/uL (0.03-0.40) Absolute Basos (auto) 0.08 10^3/uL 10^3/uL (0.02-0.10) Absolute Nucleated RBC 0.00 10^3/uL 10^3/uL (0-0.01) Immature Gran % 0.4 % % (0.0-1.1) Immature Gran # 0.05 10^3/uL 10^3/uL (0.00-0.10) Sodium 142 mEq/L mEq/L (135-145) Potassium 4.4 mEq/L mEq/L (3.5-5.2) Chloride 102 mEq/L mEq/L (97-110) Carbon Dioxide 25 mEq/l mEq/l (22-31) Anion Gap 15 mEq/L mEq/L (8-16) BUN 19 mg/dL mg/dL (7-23) Creatinine 0.8 mg/dL mg/dL (0.7-1.3) Estimated GFR > 60 Glucose 94 mg/dL mg/dL (70-100) Calcium 9.2 mg/dL mg/dL (8.5-10.4) Total Bilirubin 1.2 mg/dL mg/dL (0.1-1.4) AST 28 IU/L IU/L (17-59) ALT 37 IU/L IU/L (21-72) Alkaline Phosphatase 71 IU/L IU/L (38-126) Total Protein 7.4 g/dL g/dL (6.3-8.2) Albumin 4.3 g/dL g/dL (3.5-5.0) Medications Given: Discontinued Medications Cefazolin Sodium/Dextrose (Ancef 1 Gm (Premix)) 50 mls @ 200 mls/hr IV EDNOW ONE PRN Reason: Protocol Stop: 10/27/17 02:47 Last Admin: 10/27/17 02:44 Dose: 50 mls Ondansetron HCl (Zofran Odt) 4 mg PO EDNOW ONE Stop: 10/27/17 02:21 Last Admin: 10/27/17 02:28 Dose: 4 mg Departure - Departure Disposition: Home, Routine, Self-Care Clinical Impression: Pain, foot, left, chronic, Edema of left foot Condition: Good Instructions: Cellulitis (ED) Additional Instructions: The cause of your pain could be related to cellulitis she is a foot infection. Because of this, I would like for you to follow up with your orthopedist. I have prescribed a course of antibiotics for you. On your ultrasound today, we again saw the gastrocnemius clot. Because of this you should have a repeat ultrasound in 1-2 weeks to see if it is getting smaller. Referrals: Zac Ham MD [Primary Care Provider] - As per Instructions Prescriptions: Cephalexin [Keflex (*)] 500 mg PO Q6H #28 cap
[2017-10-27 01:26] LABS: PLATELET COUNT 222 10^3/uL (150-400)
[2017-10-27] MEDS ORDERED: ONDANSETRON DISINTEGRATING 4 MG TAB PO ONE (02:20)
[2017-10-27 03:01] VITALS: BP 107/79; PULSE 86; RESP 16; O2SAT 96
== END 2017-10-27 03:00 | disposition home or self-care (01) ==
DX: M79.672 Pain in left foot (principal); R60.0 Localized edema; Z79.82 Long term (current) use of aspirin
CPT/HCPCS: 96365; J0690

== ENCOUNTER 2017-10-29 12:16 | Inpatient (IN) | payer OTHER ==
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
[2017-10-29] MEDS ORDERED: NS 1,000 ML IV ONE (13:40)
[2017-10-29 13:45] LABS: PLATELET COUNT 341 10^3/uL (150-400)
[2017-10-29] MEDS ORDERED: DESIPRAMINE HCL 10 MG TAB PO PRN (14:38)
[2017-10-29] MEDS ORDERED: ONDANSETRON 4 MG/2 ML VIAL IVP PRN ×2 (14:40→21:17)
[2017-10-29] MEDS ORDERED: ACETAMINOPHEN 325 MG TAB PO PRN (14:40)
[2017-10-29] MEDS ORDERED: ONDANSETRON DISINTEGRATING 4 MG TAB PO PRN (14:40)
[2017-10-29] MEDS ORDERED: GADOBUTROL 10 ML VIAL IVP ONE (14:56)
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
--- NOTE | 2017-10-29 16:19 | PDMN ---
Medical Necessity Medical necessity: M70 cellulitis failed outpt tx with persistent L ankle swelling, erythema and pain - poss Post op infection ID consult pending, ortho consult pending
[2017-10-29] MEDS ORDERED: NS 1,000 ML IV SCH (16:45)
[2017-10-29] MEDS ORDERED: KETOROLAC 30 MG/1 ML SDV IVP PRN (16:54)
[2017-10-29] MEDS: oxyCODONE IR 5 MG TAB PO PRN (16:55)
[2017-10-29] MEDS ORDERED: D5W 1/2 NS W/ 20 KCl/L 1,000 ML IV SCH (17:00)
--- NOTE | 2017-10-29 17:41 | SOAPPROG ---
SOAP Progress Note Assessment/Plan: Assessment: Plan: 10/29/17 17:40 Abscess and possibly osteomyelitis of left lateral mid and hind foot. Urgent I + D tonight. Objective: Vital Signs Temp Pulse Resp BP Pulse Ox 36.7 C 88 15 137/99 H 96 10/29/17 16:11 10/29/17 16:11 10/29/17 16:11 10/29/17 16:11 10/29/17 16:11 10/28/17 10/29/17 10/30/17 05:59 05:59 05:59 Intake Total 200 Balance 200 ICD10 Worksheet Patient Problems: Problems Problem Status Onset Left ankle pain Acute Bilateral pneumonia Acute Dehydration Acute Syncope Acute
--- NOTE | 2017-10-29 18:37 | GCON ---
[f rep st] CONSULTATION DATE OF CONSULTATION: 10/29/2017 HISTORY: Arnold is a 61-year-old gentleman who over the past 3 months or so has had a persistent pr oblem secondary to reconstructive surgery on his lateral hindfoot in the peroneal tendons, left side. His surgery was complicated by a subsequent DVT and treatment with systemic anticoagulation. His f oot has become increasingly painful. Apparently, the surgeon who had treated him at [facility] did not care for the patient adequately per the patient's interpretation of events. He presented to Dr. Saw Medina today who identified significant cellulitis in the ankle. [facility] he did have a MRI which revealed high likelihood osteomyelitis and joint involveme nt of the calcaneocuboid joint. There is additional fluid tracking along the peroneal longus tendon up toward the lateral malleolus. He has elevated white count with left shift and elevated sedimentat ion rate consistent with infectious process. I was asked to see him for orthopedic specialty consult ation based on this. His past history includes open fracture of the left distal tibia, treated with an external fixator fr vince. This has left him with a clinical deformity but normal function according to the patient. He i s not able to eat or drink for the last several days due to the amount of discomfort he is in regardi ng his ankle related to this present condition. EXAMINATION: Left ankle is markedly swollen and inflamed and edematous and erythematous on the later al aspect only. He has no demonstrable dorsiflexion and plantarflexion of the foot secondary to disc omfort. He has a grossly normal sensory examination in the plantar, tibial, peroneal, sural nerve di stributions. He has an incompletely healed lateral ankle, style incision at the lateral h indfoot. The majority of the tissue is sealed but, unfortunately, there are some scabs and some area of incomplete dermal bridging. There is no drainage, however. IMAGING: I reviewed the patient's MRI. This shows signal intensity within the distal lateral calcan eus and the proximal lateral cuboid consistent with infection in the joint and potentially osteomyeli tis at that location. IMPRESSION/RECOMMENDATIONS: Two small abscesses additionally are along the peroneal tendons plus wha t appears to be joint infection at the calcaneocuboid joint. Due to the severity of the patient's symptoms, we plan for I and D procedure. I will open this dista lly at the calcaneocuboid joint to wash this out and take deep cultures and then initiate antibiotic therapy. We will plan to do this on an urgent basis this evening. /[id number]/MODL
[2017-10-29] MEDS ORDERED: POLYMYXIN B SULFATE 500,000 UNIT/10 ML SYR IRR ONE (19:18)
[2017-10-29] MEDS ORDERED: BACITRACIN 50,000 UNITS/10 ML SYR IRR ONE (19:18)
[2017-10-29] MEDS ORDERED: BUPIVACAINE 0.25% 30 ML SDV ONE (19:18)
[2017-10-29] MEDS ORDERED: LR 1,000 ML IV ONE (19:59)
--- NOTE | 2017-10-29 20:10 | PDANEPAE ---
ANE History of Present Illness left ankle I&D ANE Past Medical History - Cardiovascular History Hx Hypertension: No Hx Arrhythmias: No Hx Chest Pain: No Hx Coronary Artery / Peripheral Vascular Disease: No Hx CHF / Valvular Disease: No Hx Palpitations: No - Pulmonary History Hx COPD: No Hx Asthma/Reactive Airway Disease: No Hx Recent Upper Respiratory Infection: No Hx Oxygen in Use at Home: No Hx Sleep Apnea: No Sleep Apnea Screening Result - Last Documented: Negative - Endocrine History Hx Diabetes: No Hypothyroid: No Hyperthyroid: No Obesity: no - Chronic Pain History Chronic Pain: No ANE Review of Systems Review of systems is: negative Review of Systems: - Exercise capacity Exercise capacity: >=4 METS ANE Patient History - Allergies Allergies/Adverse Reactions: No Known Allergies Allergy (Verified 10/27/17 00:48) - Home Medications Home medications: home medication list seen and reviewed Home Medications: Pregabalin [Lyrica 150mg (*)] 150 mg PO BID 10/24/17 [Last Taken 10/29/17 06:00] Desipramine HCl [Norpramin 10 mg (*)] 10 - 20 mg PO HS PRN 10/29/17 [Last Taken 3 Days Ago ~10/26/17] [id number] Compounded Cream 1 - 3 g TP Q6-8PRN PRN 10/29/17 [Last Taken 10/28/17] Pregabalin [Lyrica 75mg (*)] 75 mg PO BID 10/29/17 [Last Taken 10/29/17 06:00] Sildenafil Citrate [Viagra] 100 mg PO DAILY PRN 10/29/17 [Last Taken Unknown] - NPO status NPO Since - Liquids (Date): 10/27/17 NPO Since - Solids (Date): 10/27/17 - Anes Hx Anes Hx: no prior problems - Smoking Hx Smoking Status: Never smoked ANE Labs/Vital Signs - Labs Result Diagrams: 10/29/17 13:30 10/29/17 13:30 - Vital Signs Blood Pressure: 125/76 Heart Rate: 74 Respiratory Rate: 16 O2 Sat (%): 94 Height: 172.72 cm Weight: 66.8 kg ANE Physical Exam - Airway Neck exam: FROM Mallampati Score: Class 1 Mouth exam: normal dental/mouth exam - Pulmonary Pulmonary: no respiratory distress - Cardiovascular Cardiovascular: regular rate and rhythym - ASA Status ASA Status: II, E ANE Anesthesia Plan Anesthesia Plan: GA w LMA
[2017-10-29] MEDS ORDERED: MIDAZOLAM 2 MG/2 ML VIAL ONE (20:44)
[2017-10-29] MEDS ORDERED: fentaNYL 100 MCG/2 ML INJ ONE ×3 (20:47→21:52)
[2017-10-29] MEDS ORDERED: PROPOFOL 200 MG/20 ML VIAL ONE (20:47)
[2017-10-29] MEDS ORDERED: LIDOCAINE 2% 5 ML SDV ONE (20:48)
[2017-10-29] MEDS ORDERED: MIDAZOLAM 2 MG/2 ML VIAL IVP ONE (20:50)
[2017-10-29] MEDS ORDERED: KETOROLAC 30 MG/1 ML SDV ONE (20:53)
[2017-10-29] MEDS ORDERED: ONDANSETRON 4 MG/2 ML VIAL ONE (20:53)
[2017-10-29] MEDS ORDERED: DEXAMETHASONE 4 MG/ML VIAL ONE (20:53)
[2017-10-29] MEDS ORDERED: ALBUTEROL 3 ML DEYVIAL IH PRN (21:17)
[2017-10-29] MEDS ORDERED: PROMETHAZINE HCL 25 MG/ML INJ IVP PRN (21:17)
[2017-10-29] MEDS ORDERED: HYDROmorphONE/DILAUDID 1 MG/ML INJ IVP PRN (21:17)
[2017-10-29] MEDS ORDERED: LABETALOL HCL 5 MG/ML 20 ML MDV IVP PRN (21:17)
[2017-10-29] MEDS ORDERED: HYDROCODONE/APAP 5/325 TAB PO PRN (21:17)
[2017-10-29] MEDS ORDERED: METOCLOPRAMIDE 10 MG/2 ML VIAL IVP PRN (21:17)
[2017-10-29] MEDS ORDERED: OXYCODONE/APAP 5/325 TAB PO PRN (21:17)
[2017-10-29] MEDS ORDERED: LR 500 ML IV PRN (21:17)
[2017-10-29] MEDS ORDERED: ACETAMINOPHEN 500 MG TAB PO PRN (21:17)
[2017-10-29] MEDS ORDERED: NALOXONE HCL 0.4 MG/ML INJ IVP PRN (21:17)
--- NOTE | 2017-10-29 21:17 | POSTANESTH ---
Post Anesthetic Evaluation Cardiovascular Status: Normal, Stable Respiratory Status: Normal, Stable Level of Consciousness/Mental Status: Can Participate in Eval, Alert and Oriented Pain Control: Inadeq, Add Tx Required Nausea/Vomiting Control: Adequate, Prn Tx Ordered Complications Possibly Related to Anesthesia: None Noted
[2017-10-29] MEDS: fentaNYL 100 MCG/2 ML INJ IVP PRN ×2 (21:54→22:00)
--- NOTE | 2017-10-29 21:58 | POSTOPPROG ---
Post Op Note Date of Operation: 10/29/17 Surgeon: iRtesh Brown Supervisor Chemical: Gricelda Malloy Anesthesia: LMA Pre-op Diagnosis: Peroneal Abscess with Septic Calc Cuboid joint left Post-op Diagnosis: Same Procedure: I + D tendon abscess and Septic Calc Cub Joint Findings: Thick pus sent x 2 for An and A Micro Inf/Abcess present in the surg proc area at time of surgery?: Yes Depth: Organ Space EBL: Minimal Complications: None Drains: Hemovac
[2017-10-29] MEDS ORDERED: HYDROmorphONE/DILAUDID 1 MG/ML INJ ONE (21:59)
[2017-10-29] MEDS: PREGABALIN 75 MG CAP PO SCH (22:54)
[2017-10-29] MEDS: PREGABALIN 150 MG CAP PO SCH (22:54)
[2017-10-29] MEDS: VANCOMYCIN HCL/NORMAL SALINE 250 ML IV SCH (22:55)
[2017-10-30] MEDS: oxyCODONE IR 5 MG TAB PO PRN ×3 (00:08→17:33)
--- NOTE | 2017-10-30 02:18 | GOP ---
[f rep st] OPERATIVE REPORT DATE OF OPERATION: 10/29/2017 SURGEON: Ritesh Brown MD PREOPERATIVE DIAGNOSIS: Diagnosis abscess with osteomyelitis, left hind foot. POSTOPERATIVE DIAGNOSIS: Diagnosis abscess with osteomyelitis, left hind foot. PROCEDURE PERFORMED: 1. Incision and drainage of abscess along peroneal tendons, left lateral ankle. 2. Unroofing of bone abscess, left cuboid. FINDINGS: His previous incision, which was a curvilinear incision around the posterior and inferior aspect of the distal fibula, was carried sharply through the skin. Thick pus was encountered and was cultured x2 for anaerobic and aerobic activity. He had retained sutures in the peroneus brevis tend on, in particular. The retained sutures in the tendon were removed as much as they were foreign mate rial, and this area was surrounded with pus. This tracked distally to the calcaneocuboid joint. I o pened the calcaneocuboid joint and there was thick pus within the joint as well. I thoroughly irriga edy all areas with normal saline. DESCRIPTION OF PROCEDURE: After routinely checking the patient's identification, consent and the suc cessful induction of LMA general anesthetic, the patient's left lower extremity was prepped and drape d in usual standard fashion. I exsanguinated the limb with an Esmarch wrap and the pneumatic tourniq uet previously placed about the proximal left leg, inflated to 250 mmHg. A curvilinear incision was carried sharply through the skin and then bluntly through the minimal subcutaneous layer. I carried this full-thickness down to the level of the peroneal tendons, which were well identified. Thick pus was encountered, and this was cultured as noted above. I dissected proximally until the tissue was normal. I removed the indwelling sutures in the peroneus brevis tendon. I did not identify any sutu res in the longus tendon, but the pus was surrounding both tendons just to the posterior aspect of th e fibula. This tracked distally toward insertion on the lateral aspect of the cuboid. The calcaneocuboid joint was distended. There was pus within this joint as well. This was evacuated and I thoroughly irrigated the entire wound region including the calcaneocuboid joint with normal sa line. A suction drain was placed exiting distally through a separate puncture wound and the skin was closed with full-thickness retention sutures. A sterile bulky dressing was applied, followed by a c ompressive wrap. The patient will be started on IV antibiotics per ID recommendation. There were no intraoperative co mplications. INDICATIONS FOR SURGERY: The patient is a 61-year-old gentleman who had lateral ankle reconstructive surgery approximately 3 months ago. He indicates he had peroneal tendon repair. He has developed s ignificant pain and swelling, erythema and elevated white count with left shift, and elevated sedimen tation rate, consistent with significant infection. MRI confirms that he has high likelihood of an a bscess in the lateral aspect of his ankle, including osteomyelitis and septic arthritis at the calcan eocuboid joint. He was brought to the operating room for definitive surgical management. /[id number]/MODL
[2017-10-30] MEDS: ENOXAPARIN 40 MG/0.4 ML SYR SC SCH (10:01)
[2017-10-30] MEDS: PREGABALIN 150 MG CAP PO SCH ×2 (10:02→22:00)
[2017-10-30] MEDS: PREGABALIN 75 MG CAP PO SCH ×2 (10:02→22:00)
--- NOTE | 2017-10-30 10:25 | SOAPPROG ---
SOAP Progress Note Assessment/Plan: Assessment:Doing OK POD #1 from I+D of ankle/foot and peroneal tendons. Plan:IV abx - due to bone involvement I feel ad terminal makeup operator treatment will be needed WBAT in left foot/ankle - Peroneal tendons are intact I will undress and pull drain on Tuesday 10/31. 10/29/17 17:40 10/30/17 10:22 Subjective: Slept OK Objective: Vital Signs Temp Pulse Resp BP Pulse Ox 36.4 C 62 16 120/74 97 10/30/17 08:00 10/30/17 08:00 10/30/17 08:00 10/30/17 08:00 10/30/17 08:00 Microbiology 10/29/17 21:15 Gram Stain - Final Ankle - Eswab 10/29/17 21:15 Gram Stain - Final Ankle - Eswab 10/29/17 10/30/17 10/31/17 05:59 05:59 05:59 Intake Total 1150 Output Total 20 Balance 1130 AF VSS CSM I Exposed left toes Pain control adequate ICD10 Worksheet Patient Problems: Problems Problem Status Onset Bilateral pneumonia Acute Dehydration Acute Syncope Acute
[2017-10-30] MEDS: VANCOMYCIN HCL/NORMAL SALINE 250 ML IV SCH ×2 (10:45→22:00)
--- NOTE | 2017-10-30 11:00 | PCMIDPN ---
Assessment/Plan: Assessment: Left ankle postoperative infection. Status post incision and drainage with debridement yesterday. Operative samples with Gram-positive cocci in Gram stain. No growth in cultures as of yet. Patient is covered on empiric monotherapy with vancomycin. Clinically he is significantly improved. Plan: 1. Continue monotherapy with vancomycin for now. 2. Follow up on culture results. 3. Adjust antibiotics based on these results and sensitivity panel. 10/30/17 10:58 Subjective: Patient is resting in his hospital bed. He denies any new complaints. No fevers or chills. The pain in his left ankle is significantly reduced. Objective: Vancomycin # 1 Vital Signs Temp Pulse Resp BP Pulse Ox 36.4 C 62 16 120/74 97 10/30/17 08:00 10/30/17 08:00 10/30/17 08:00 10/30/17 08:00 10/30/17 08:00 Microbiology 10/29/17 21:15 Gram Stain - Final Ankle - Eswab 10/29/17 21:15 Gram Stain - Final Ankle - Eswab 10/29/17 10/30/17 10/31/17 05:59 05:59 05:59 Intake Total 1150 Output Total 20 Balance 1130 ESR 27 MM/HR (0-20) H 10/29/17 13:30 C-Reactive Protein 62.1 mg/L (<10.0) H 10/29/17 13:30 - Physical Exam General Appearance: WD/WN, alert, no apparent distress, thin, non-toxic Respiratory: lungs clear, normal breath sounds, No respiratory distress Cardiac/Chest: regular rate, rhythm, No tachycardia Extremities: No non-tender, No normal inspection (Left foot and ankle status post debridement. Drain in place. Serosanguineous drainage. No significant proximal erythema seen.) Skin: normal color, warm/dry, No rash Neuro/Psych: alert, normal mood/affect, oriented x 3 ICD10 Worksheet Patient Problems: Problems Problem Status Onset Bilateral pneumonia Acute Dehydration Acute Syncope Acute
--- NOTE | 2017-10-30 15:37 | HOSPPROG ---
Hospitalist Progress Note Assessment/Plan: 61 yo male s/p left foot and ankle surgery for articular infection, cultures pending on vancomycin. Today pain is increasing, cultures pending. -left foot abscess, s/p I&D with OMERO drain, improving -s/p DVT previously on anticoagulation therapy, not full dose now -DVT prop: lovenox 40 mg qd Time: 35 minutes Disposition: awaiting cultures to direct therapy Subjective: c/o pain in left foot. no chest pain, sob, nausea Objective: Vital Signs Temp Pulse Resp BP Pulse Ox 36.4 C 62 16 120/74 97 10/30/17 08:00 10/30/17 08:00 10/30/17 08:00 10/30/17 08:00 10/30/17 08:00 Microbiology 10/29/17 21:15 Gram Stain - Final Ankle - Eswab 10/29/17 21:15 Gram Stain - Final Ankle - Eswab 10/29/17 10/30/17 10/31/17 05:59 05:59 05:59 Intake Total 1150 Output Total 20 200 Balance 1130 -200 - Time Spent With Patient Time Spent with Patient: greater than 35 minutes Time Spent with Patient: Greater than 35 minutes spent on this patients care, greater than 50% of time spent counseling, educating, and coordinating care regarding the above mentioned plan. - Pending Discharge Pending Discharge Within 24 Hours: No Pending Discharge Within 48 Hours: No - Physical Exam Constitutional: no apparent distress Eyes: PERRL, anicteric sclera Ears, Nose, Mouth, Throat: moist mucous membranes Cardiovascular: regular rate and rhythym, no murmur, rub, or gallop Respiratory: no respiratory distress, no rales or rhonchi Gastrointestinal: normoactive bowel sounds, soft, non-tender abdomen, no palpable masses Genitourinary: no bladder fullness Skin: warm Musculoskeletal: full muscle strength, other (left foot in surgical bandage; pulses normal skin warm and dry. does not want to move the foot) Neurologic: AAOx3 Psychiatric: interacting appropriately ICD10 Worksheet Patient Problems: Problems Problem Status Onset Bilateral pneumonia Acute Dehydration Acute Syncope Acute
[2017-10-31] MEDS: oxyCODONE IR 5 MG TAB PO PRN ×4 (03:35→22:08)
[2017-10-31] MEDS: ENOXAPARIN 40 MG/0.4 ML SYR SC SCH (09:43)
[2017-10-31] MEDS: PREGABALIN 150 MG CAP PO SCH ×2 (09:44→22:04)
[2017-10-31] MEDS: PREGABALIN 75 MG CAP PO SCH ×2 (09:44→22:04)
--- NOTE | 2017-10-31 10:20 | SOAPPROG ---
SOAP Progress Note Assessment/Plan: Assessment:Doing Better, pain much better. POD #2 from I+D of ankle/foot and peroneal tendons. Plan:IV abx - due to bone involvement I feel penitentiary treatment will be needed WBAT in left foot/ankle - Peroneal tendons are intact Dressing changes PRN Can be followed as Outpatient when ID feels safe to D/C 10/31/17 10:19 Subjective: Pain significantly less Objective: Vital Signs Temp Pulse Resp BP Pulse Ox 36.6 C 64 16 130/69 H 93 10/31/17 07:53 10/31/17 07:53 10/31/17 07:53 10/31/17 07:53 10/31/17 07:53 Microbiology 10/29/17 21:15 Gram Stain - Final Ankle - Eswab 10/29/17 21:15 Gram Stain - Final Ankle - Eswab 10/30/17 10/31/17 11/01/17 05:59 05:59 05:59 Intake Total 1150 990 Output Total 20 355 Balance 1130 635 Wound looks much better. Minimal swelling and erythema. Drain pulled. Calves NT, CSM I B LE. ICD10 Worksheet Patient Problems: Problems Problem Status Onset Bilateral pneumonia Acute Dehydration Acute Syncope Acute
[2017-10-31] MEDS: VANCOMYCIN HCL/NORMAL SALINE 250 ML IV SCH (11:02)
--- NOTE | 2017-10-31 11:54 | PCMIDPN ---
Assessment/Plan: Assessment: Left ankle postoperative infection. Status post incision and drainage with debridement yesterday. Operative samples with MSSA in culture. Patient is currently covered on empiric monotherapy with vancomycin. Will discontinue vancomycin and start cefazolin 2 g IV Q 8 hr. Plan on this being a 6 week course from surgery. Will have PICC line placed and arrangements for home IV antibiotics through case management. Plan: 1. Discontinue IV vancomycin. 2. Start IV cefazolin 2 g q.8 hours. Total duration of 6 weeks from surgery. 3. PICC line placement. 4. Start arrangement for home IV antibiotics. Subjective: Patient is resting in his hospital bed. Still feels pain postoperatively in his left foot and ankle. Otherwise doing well. Remains in good spirits. Objective: Vancomycin # 2 Vital Signs Temp Pulse Resp BP Pulse Ox 36.6 C 64 16 130/69 H 93 10/31/17 07:53 10/31/17 07:53 10/31/17 07:53 10/31/17 07:53 10/31/17 07:53 Microbiology 10/29/17 21:15 Gram Stain - Final Ankle - Eswab 10/29/17 21:15 Gram Stain - Final Ankle - Eswab 10/30/17 10/31/17 11/01/17 05:59 05:59 05:59 Intake Total 1150 990 Output Total 20 355 Balance 1130 635 ESR 27 MM/HR (0-20) H 10/29/17 13:30 C-Reactive Protein 62.1 mg/L (<10.0) H 10/29/17 13:30 - Physical Exam General Appearance: WD/WN, alert, no apparent distress, non-toxic Respiratory: lungs clear, normal breath sounds, No respiratory distress Cardiac/Chest: regular rate, rhythm, No tachycardia Extremities: swelling, No non-tender, No normal inspection (Left foot and ankle dressed. Drains been removed. No significant surrounding erythema.) Skin: normal color, warm/dry, No rash Neuro/Psych: alert, normal mood/affect, oriented x 3 ICD10 Worksheet Patient Problems: Problems Problem Status Onset Bilateral pneumonia Acute Dehydration Acute Syncope Acute
[2017-10-31] MEDS ORDERED: ALTEPLASE 2 MG VIAL IVP PRN (12:48)
[2017-10-31] MEDS: ceFAZolin 2 GM/DEXTROSE 100 ML IV SCH ×2 (14:24→22:02)
--- NOTE | 2017-10-31 16:07 | ASMTCMCOM ---
CM Note CM Note Notes: Pt had I&D and debridement on L ankle post op infection yesterday. ID is recommending 6 weeks of IV ancef Q8. a PICC line will be placed. Faxed referral to [facility] to run clinicals. They are not staffed so will get a quote tomorrow. CM to follow. Date Signed: 10/31/2017 04:06 PM Electronically Signed By:Mireya Liang LCSW
--- NOTE | 2017-10-31 18:09 | HOSPPROG ---
Hospitalist Progress Note Assessment/Plan: 61 yo male s/p left foot and ankle surgery for articular infection, cultures pending on vancomycin. Today pain is increasing, cultures pending. -left foot abscess, s/p I&D with OMERO drain, improving. Per ID the gentleman can be changed and Ancef. He can be discharged when arrangements for home care been made. -s/p DVT previously on anticoagulation therapy, not full dose now -DVT prop: lovenox 40 mg qd Time: 35 minutes Disposition: Per cultures the gentleman will be changed to Ancef for home IV care. Subjective: Reports that is becoming more painful now than before. Denies chest pain shortness of breath fever. He is moving the foot more and thus it is more painful. Objective: Vital Signs Temp Pulse Resp BP Pulse Ox 36.7 C 83 16 121/80 H 94 10/31/17 15:15 10/31/17 15:15 10/31/17 15:15 10/31/17 15:15 10/31/17 15:15 Microbiology 10/29/17 21:15 Gram Stain - Final Ankle - Eswab 10/29/17 21:15 Gram Stain - Final Ankle - Eswab 10/30/17 10/31/17 11/01/17 05:59 05:59 05:59 Intake Total 1150 990 Output Total 20 355 Balance 1130 635 - Time Spent With Patient Time Spent with Patient: greater than 35 minutes Time Spent with Patient: Greater than 35 minutes spent on this patients care, greater than 50% of time spent counseling, educating, and coordinating care regarding the above mentioned plan. - Pending Discharge Pending Discharge Within 24 Hours: Yes Pending Discharge Date: 11/01/17 Pending Discharge Time: 11:00 - Physical Exam Constitutional: no apparent distress Eyes: PERRL, anicteric sclera Ears, Nose, Mouth, Throat: moist mucous membranes, hearing normal Cardiovascular: regular rate and rhythym, no murmur, rub, or gallop Respiratory: no respiratory distress, no rales or rhonchi, clear to auscultation Gastrointestinal: normoactive bowel sounds, soft, non-tender abdomen, no palpable masses Genitourinary: no bladder fullness Musculoskeletal: other (Left leg is elevated shows a surgical wound which is healing well without ascending cellulitis. There is slight tenderness about the area of the wound without lymphangitis. There is also minor swelling around the wound and above it but no signs again of cellulitis the OMERO drain has been removed.) Psychiatric: interacting appropriately ICD10 Worksheet Patient Problems: Problems Problem Status Onset Bilateral pneumonia Acute Syncope Acute Dehydration Acute
[2017-10-31] MEDS ORDERED: VANCOMYCIN 1 GM in D5W 250 ML IV SCH (22:00)
[2017-11-01] MEDS: oxyCODONE IR 5 MG TAB PO PRN ×4 (02:48→20:04)
[2017-11-01 04:20] LABS: PLATELET COUNT 261 10^3/uL (150-400)
[2017-11-01] MEDS: ceFAZolin 2 GM/DEXTROSE 100 ML IV SCH ×2 (06:04→15:39)
[2017-11-01] MEDS: ENOXAPARIN 40 MG/0.4 ML SYR SC SCH (07:37)
[2017-11-01] MEDS: PREGABALIN 150 MG CAP PO SCH ×2 (07:37→20:02)
[2017-11-01] MEDS: PREGABALIN 75 MG CAP PO SCH ×2 (07:38→20:02)
--- NOTE | 2017-11-01 08:39 | SOAPPROG ---
SOAP Progress Note Assessment/Plan: Assessment: Plan: Objective: Vital Signs Temp Pulse Resp BP Pulse Ox 36.8 C 71 18 132/86 H 95 11/01/17 08:00 11/01/17 08:00 11/01/17 08:00 11/01/17 08:00 11/01/17 08:00 Microbiology 10/29/17 21:15 Gram Stain - Final Ankle - Eswab 10/29/17 21:15 Gram Stain - Final Ankle - Eswab Laboratory Results 11/01/17 03:58 10/31/17 11/01/17 11/02/17 05:59 05:59 05:59 Intake Total 990 1460 Output Total 355 300 Balance 635 1160 ICD10 Worksheet Patient Problems: Problems Problem Status Onset Bilateral pneumonia Acute Dehydration Acute Syncope Acute
--- NOTE | 2017-11-01 08:47 | SOAPPROG ---
SOAP Progress Note Assessment/Plan: Assessment:Doing Fine. POD #3 from I+D of ankle/foot and peroneal tendons. 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 Objective: Vital Signs Temp Pulse Resp BP Pulse Ox 36.8 C 71 18 132/86 H 95 11/01/17 08:00 11/01/17 08:00 11/01/17 08:00 11/01/17 08:00 11/01/17 08:00 Microbiology 10/29/17 21:15 Gram Stain - Final Ankle - Eswab 10/29/17 21:15 Gram Stain - Final Ankle - Eswab Laboratory Results 11/01/17 03:58 10/31/17 11/01/17 11/02/17 05:59 05:59 05:59 Intake Total 990 1460 Output Total 355 300 Balance 635 1160 Minimal heme soilage on dressing posteriorly. Pain continues to improve Calves NT CSM I B LE ICD10 Worksheet Patient Problems: Problems Problem Status Onset Bilateral pneumonia Acute Dehydration Acute Syncope Acute
--- NOTE | 2017-11-01 14:33 | PDIAF ---
- Diagnosis Diagnosis: L ankle postoperative infection - osteomyelitis - Medication Management Discharge Medications: Medications to Continue on Transfer Pregabalin [Lyrica 150mg (*)] 150 mg PO BID 10/24/17 [Last Taken 10/29/17 06:00] Cephalexin [Keflex (*)] 500 mg PO Q6H #28 cap 10/27/17 [Last Taken 10/29/17 06: 00] Desipramine HCl [Norpramin 10 mg (*)] 10 - 20 mg PO HS PRN 10/29/17 [Last Taken 3 Days Ago ~10/26/17] Th22ior Compounded Cream 1 - 3 g TP Q6-8PRN PRN 10/29/17 [Last Taken 10/28/17] Pregabalin [Lyrica 75mg (*)] 75 mg PO BID 10/29/17 [Last Taken 10/29/17 06:00] Sildenafil Citrate [Viagra] 100 mg PO DAILY PRN 10/29/17 [Last Taken Unknown] Market Analyst Antibiotics: ertapenem 1 g IV q 24 hours Market Analyst Antibiotic Stop Date: 12/10/17 Discharge Medications: Refer to the Discharge Home Medication list for PRN reason. PICC Care - Routine: Yes - Orders Services needed: Registered Nurse - Labs/Radiology CBC w/diff Date: 11/04/17 (weekly) CMP Date: 11/04/17 (weekly) Call or Fax Lab and Imaging Results to: Dr. Saw Medina - Follow Up Care Current Providers and Referrals: Zac Ham MD [Primary Care Provider] - As per Instructions Ritesh Brown MD [Medical Doctor] - follow up in 1 week (Please call early for appointment to see My PA on Wednesday11/08/17 ( I will be out of town). Plan for suture removal at that visit. Keep wound dry until then. Weight bearing as solerated.)
--- NOTE | 2017-11-01 14:41 | PCMIDPN ---
Assessment/Plan: Assessment: Left ankle postoperative infection. Status post incision and drainage with debridement yesterday. Operative samples with MSSA in culture as well as a variety of anaerobes. Patient is currently covered with cefazolin 2 g IV Q 8 hr. Will change the regimen from cefazolin monotherapy to ertapenem monotherapy given the addition of anaerobes. Plan on this being a 6 week course from surgery. Will have PICC line placed and arrangements for home IV antibiotics through case management. Plan: 1. Discontinue IV cefazolin. 2. Start IV ertapenem 1 g IV Q 24 hours. Total duration of 6 weeks from surgery. 3. PICC line placement. 4. Start arrangement for home IV antibiotics. 11/01/17 17:04 Subjective: Patient is resting in his hospital bed. He states when he remains still and elevates his left ankle he has no pain but when he moves his foot dependently it throbs 7/10. No fevers or chills. Objective: Cefazolin # 1 Vital Signs Temp Pulse Resp BP Pulse Ox 36.8 C 71 18 132/86 H 95 11/01/17 08:00 11/01/17 08:00 11/01/17 08:00 11/01/17 08:00 11/01/17 08:00 Microbiology 10/29/17 21:15 Gram Stain - Final Ankle - Eswab 10/29/17 21:15 Gram Stain - Final Ankle - Eswab Laboratory Results 11/01/17 03:58 10/31/17 11/01/17 11/02/17 05:59 05:59 05:59 Intake Total 990 1460 Output Total 355 300 700 Balance 635 1160 -700 ESR 27 MM/HR (0-20) H 10/29/17 13:30 C-Reactive Protein 62.1 mg/L (<10.0) H 10/29/17 13:30 - Physical Exam General Appearance: WD/WN, alert, no apparent distress, non-toxic Respiratory: lungs clear, normal breath sounds, No respiratory distress Cardiac/Chest: regular rate, rhythm, No tachycardia Extremities: inflammation, erythema, No non-tender, No normal inspection Skin: normal color, warm/dry, No rash Neuro/Psych: alert, normal mood/affect, oriented x 3 ICD10 Worksheet Patient Problems: Problems Problem Status Onset Bilateral pneumonia Acute Dehydration Acute Syncope Acute
[2017-11-01] MEDS: ERTAPENEM 1 GM VIAL IV SCH (14:54)
--- NOTE | 2017-11-01 17:18 | HOSPPROG ---
Hospitalist Progress Note Assessment/Plan: DIAGNOSES: -left foot abscess, s/p I&D with OMERO drain, improving. Per ID the gentleman can be changed and Ancef. He can be discharged when arrangements for home care been made. -today there are now multiple organisms growing from his cultures which will require broadening of antibiotic coverage, I reviewed this with Dr. Medina in detail today -s/p DVT previously on anticoagulation therapy, not full dose now -DVT prop: lovenox 40 mg qd PLANS: -continue vancomycin says currently amended by Dr. Medina with increased coverage for multiple organisms growing in cultures now -continue present wound care -continue work with case management on trying to workup the largest X of home IV therapy SUBJECTIVE: Still some pain in his foot and ankle but no worse than yesterday No chills or sweats 1 episode of nausea today has resolved OBJECTIVE Vitals reviewed: Stable without fever Global Technical Writer, my review: Sinus rhythm Exam: alert oriented skin warm dry color ok resps not labored lungs clear BSs heart regular abd soft nondistended nontender, bowel sounds present limbs still some swelling and redness around his foot and ankle but no change from yesterday iv site ok Laboratory data: Stable CBC Microbiology data: Cultures from wound now showing growth of multiple organisms including the new growth of Finegoldia, Anaerococcus, and Peptoniphilus species Objective: Vital Signs Temp Pulse Resp BP Pulse Ox 36.8 C 93 18 107/71 95 11/01/17 16:00 11/01/17 16:00 11/01/17 16:00 11/01/17 16:00 11/01/17 16:00 Microbiology 10/29/17 21:15 Gram Stain - Final Ankle - Eswab 10/29/17 21:15 Gram Stain - Final Ankle - Eswab Laboratory Results 11/01/17 03:58 10/31/17 11/01/17 11/02/17 06:59 06:59 06:59 Intake Total 990 1460 420 Output Total 355 300 700 Balance 635 1160 -280 ICD10 Worksheet Patient Problems: Problems Problem Status Onset Bilateral pneumonia Acute Dehydration Acute Syncope Acute
[2017-11-02] MEDS: oxyCODONE IR 5 MG TAB PO PRN ×3 (00:57→12:58)
[2017-11-02 07:09] VITALS: TEMP 98.1; O2SAT 95
[2017-11-02] MEDS: PREGABALIN 75 MG CAP PO SCH (07:59)
[2017-11-02] MEDS: ERTAPENEM 1 GM VIAL IV SCH (07:59)
[2017-11-02] MEDS: ENOXAPARIN 40 MG/0.4 ML SYR SC SCH (07:59)
[2017-11-02] MEDS: PREGABALIN 150 MG CAP PO SCH (07:59)
[2017-11-02 11:15] VITALS: BP 98/84; PULSE 100; RESP 12
--- NOTE | 2017-11-02 13:25 | PDIAF ---
- Diagnosis Diagnosis: L ankle postoperative infection - osteomyelitis - Medication Management Discharge Medications: Medications to Continue on Transfer Pregabalin [Lyrica 150mg (*)] 150 mg PO BID 10/24/17 [Last Taken 10/29/17 06:00] Desipramine HCl [Norpramin 10 mg (*)] 10 - 20 mg PO HS PRN 10/29/17 [Last Taken 3 Days Ago ~10/26/17] [id number] Compounded Cream 1 - 3 g TP Q6-8PRN PRN 10/29/17 [Last Taken 10/28/17] Pregabalin [Lyrica 75mg (*)] 75 mg PO BID 10/29/17 [Last Taken 10/29/17 06:00] Sildenafil Citrate [Viagra] 100 mg PO DAILY PRN 10/29/17 [Last Taken Unknown] Acetaminophen [Tylenol 325mg (*)] 650 mg PO Q4HRS PRN tab 11/02/17 [Last Taken Unknown] Ertapenem [INVanz] 1 gm IV DAILY vial 11/02/17 [Last Taken Unknown] oxyCODONE IR [Oxycodone Ir (*)] 5 - 10 mg PO Q3HRS PRN #40 tab 11/02/17 [Last Taken Unknown] Wine Bottle Inspector Antibiotics: ertapenem 1 g IV q 24 hours Wine Bottle Inspector Antibiotic Stop Date: 12/10/17 Discharge Medications: Refer to the Discharge Home Medication list for PRN reason. PICC Care - Routine: Yes - Orders Services needed: Registered Nurse Diet Recommendation: no restrictions on diet Diet Texture: Regular Texture Diet Wound Care Instructions: keep wound clean and dry until orthopedics clinic reassessment Additional: Contact Dr Ritesh Brown for any questions related to his wound. Contact Dr Medina at [facility] for any questions related to his antibiotics - Labs/Radiology CBC w/diff Date: 11/04/17 (weekly) CMP Date: 11/04/17 (weekly) Call or Fax Lab and Imaging Results to: Dr. Saw Medina - Follow Up Care Current Providers and Referrals: Zac Ham MD [Primary Care Provider] - As per Instructions Ritesh Brown MD [Medical Doctor] - follow up in 1 week (Please call early for appointment to see My PA on Wednesday11/08/17 ( I will be out of town). Plan for suture removal at that visit. Keep wound dry until then. Weight bearing as tolerated.)
--- NOTE | 2017-11-02 16:42 | ASDISCHSUM ---
Discharge Information Plan Status:Home with Home Health Medically Cleared to Leave:11/01/2017 Discharge Date:11/01/2017 CM D/C Disposition:Home Health Service ADT D/C Disposition:Home Health Service Projected Discharge Date:11/02/2017 11:00 AM Transportation at D/C:Self Discharge Delay Reason: Follow-Up Date:11/02/2017 11:00 AM Discharge Slot: Final Diagnosis: Placement Information Referral Type:Home Infusion Referral ID:[id number] Provider Name:[facility] Address 1:[address] [place] [address], [address] Address 2: City: [place]: State:[place] Patient Contact Information Contact Name:DEEPTHI Relationship:Son Address: Work Phone: City: [facility] Phone: [facility] Code: Email: Financial Information Financial Class:Worker's Compensation Primary Plan Desc:EMPLOYERS INS Primary Plan Number:[id number] Secondary Plan Desc: Secondary Plan Number: Assessment Information [facility] CM Progress Note CM Note CM Note Notes: Pt had I&D and debridement on L ankle post op infection yesterday. ID is recommending 6 weeks of IV ancef Q8. a PICC line will be placed. Faxed referral to [facility] to run clinicals. They are not staffed so will get a quote tomorrow. CM to follow. Date Signed: 10/31/2017 04:06 PM Electronically Signed By:Mireya Liang LCSW Case Management Discharge Plan Note Case Management Discharge Discharge Order Complete? Answers: Yes Patient to Obtain Answers: Other Notes: [facility] Medications Transportation Arranged Answers: Other Notes: self Faxed Final Orders Answers: Yes Agency/Facility Transfer Answers: Yes Report Printed & Faxed to Receiving Agency Discharge Comments Notes: 11/02/2017 Case Management d/c note Contacted [employer] medical insurance claims specialist for workmans comp insurance at . Instructed by Prema to contace [facility] at [phone] for home iv needs. Jesenia was machine adjuster leader case trim assigned to case from [facility] [phone]. Jesenia arranged for home iv antibiotics through [employer]. [facility] visited with pt and arranged for her nurse to meet the pt at the [facility] tomorrow. Pt phone number does not work at home, please use his email to contact him. Date Signed: 11/02/2017 04:41 PM Electronically Signed By:Brenda Shaikh RN Intervention Information
--- NOTE | 2017-11-02 17:16 | PDDCSUM ---
Discharge Summary Discharge Summary: DISCHARGE DIAGNOSES: -multiple abscesses of the left ankle and foot after a prior perineal tendon repair done elsewhere -peroneal nerve dysfunction CONSULTANTS: Dr. Ritesh Medina PROCEDURES: Incision and drainage of abscess and unroofing of the cuboid bone to drain abscess MRI of the leg and foot HOSPITAL COURSE SUMMARY: This patient had previously a few months ago a peroneal tendon repair in comes in at this time with gradually worsening pain but rapidly accelerating pain over the week or 2 before admission and along with fever and had obvious infection at the time of this presentation. MRI showed multiple abscesses. He went to the operating room with Dr. Ritesh Brown and had drainage of abscesses and the required the unroofing of the cuboid bone of the foot which had abscess. Patient tolerated surgeries well and there were no complications. He was started on antibiotics after the surgeries. Cultures have grown multiple organisms with 4 different species identified. He is currently receiving ongoing antibiotics based on the expected sensitivities of these multiple organisms and is gradually having decrease in pain and swelling. Fevers have resolved. Is expected he will need at least 6 weeks of total antibiotics. At this point he has recovered to the stability that he could go home with, and we are if finally been able to get home IV antibiotics set up through his insurance which is a worker's compensation. The patient will have ongoing wound care chief with Dr. Brown in clinic and will also be following up closely with Dr. Medina in the Infectious Disease Clinic. His antibiotic is Ivanz which is to be given daily through December The patient does have some peroneal nerve dysfunction symptomatically and this is having a slight improvement so far here during his hospital stay. He has weakness at the ankle and foot although this is probably more due to the swelling and inflammation that he has there, but this will need to be followed closely over time. PENDING TEST RESULTS: None MEDICATION CHANGES: Invanz 1 g IV daily through December 10 FOLLOW-UP PLAN: Next week with Dr. Brown Next week with Dr. Saw Medina He will be visited by home care agency with nursing for his IV antibiotics. Orders have been sent. Greater than 35 minutes bedside and care coordination time today
--- NOTE | 2017-11-02 19:08 | SOAPPROG ---
SOAP Progress Note Assessment/Plan: Assessment:Doing Fine. POD #4 from I+D of ankle/foot and peroneal tendons. Plan: WBAT in left foot/ankle - Peroneal tendons are intact Dressing changes PRN Can be followed as Outpatient when ID feels safe to D/C 10/31/17 10:19 11/01/17 08:47 11/02/17 19:08 Subjective: Less pain Objective: Vital Signs Temp Pulse Resp BP Pulse Ox 36.7 C 100 12 98/84 H 95 11/02/17 11:14 11/02/17 11:14 11/02/17 11:14 11/02/17 11:14 11/02/17 11:14 Microbiology 10/29/17 21:15 Gram Stain - Final Ankle - Eswab 10/29/17 21:15 Gram Stain - Final Ankle - Eswab Laboratory Results 11/01/17 03:58 11/01/17 11/02/17 11/03/17 05:59 05:59 05:59 Intake Total 1460 2520 Output Total 300 1500 Balance 1160 1020 Wound stabilized and drainage now stopped. Erythema less today. ICD10 Worksheet Patient Problems: Problems Problem Status Onset Bilateral pneumonia Acute Dehydration Acute Syncope Acute
== END 2017-11-02 17:02 | disposition home health service (06) | DRG 857 ==
LOC: F2W 16:05
PROVIDERS: ADMIT Family Medicine; ATTEND Family Medicine
PROC: 0L9 Tendons, Drainage (ICD-10-PCS; principal; 2017-10-29 21:30)
PROC: 0Q9 Lower Bones, Drainage (ICD-10-PCS; principal; 2017-10-29 21:30)
PROC: 02HV33Z Insertion of Infusion Device into Superior Vena Cava, Percutaneous Approach (ICD-10-PCS; 2017-11-01)
DX: T81.4XXA Infection following a procedure, initial encounter (principal); L03.116 Cellulitis of left lower limb; M00.072 Staphylococcal arthritis, left ankle and foot; L02.416 Cutaneous abscess of left lower limb; M00.872 Arthritis due to other bacteria, left ankle and foot; M86.9 Osteomyelitis, unspecified; Z86.718 Personal history of other venous thrombosis and embolism
CPT/HCPCS: 82947-QW; 97161-GP; A9585; C1751; J0690; J1100; J1170; J1335; J1650; J1885; J2250; J2405; J2704; J3010; J3370

== ENCOUNTER 2017-11-14 14:52 | Emergency (ER) | payer OTHER ==
[2017-11-14 14:59] VITALS: RESP 18
--- NOTE | 2017-11-14 15:37 | EDPHY ---
H & P Time Seen by Provider: 11/14/17 15:12 HPI/ROS: HPI Surgical wound infection. 61-year-old male by private vehicle. This patient underwent a left leg peroneal tendon repair on July 19 in [place]. He reports that he developed an infection including abscess and osteomyelitis to the surgical site. He was seen by Dr. Ritesh Brown as well as Saw Medina 2 weeks ago. The surgical incision was reopened and the area was washed out by Dr. Brown on October 29. Dr. Medina put him on ertapenem daily self infusion. He has been taking ertapenem daily since this time. He reports worsening pain to the area. He saw Dr. Brown on . Dr. Brown advised that he come into the emergency department to have the sutures removed and have the wound opened back up and another washout performed. He also saw Dr. Medina on Wednesday who concurred with this. He presents to the emergency department for removal of his stitches, wound washout an MRI of the left ankle calf area. ROS: Constitutional: No fever, no chills. No weakness. Eyes: No discharge. No changes in vision. ENT: No sore throat. No nasal congestion or rhinorrhea. Respiratory: No cough. No shortness of breath. Cardiac: No chest pain, no palpitations. Gastrointestinal: No abdominal pain, no vomiting, no diarrhea. Genitourinary: No hematuria. No dysuria or increased frequency with urination. Musculoskeletal: No back pain. No neck pain. Left ankle pain as above. Skin: No rashes. Neurological: No headache. No focal weakness or altered sensation. Past medical history: Left leg DVT, hernia repair, orthopedic surgeries, as above. Left upper extremity PICC line placed 2 weeks ago for self administration of ertapenem. Social history: Nonsmoker. No alcohol. Here by himself. Physical Exam: General Appearance: Alert, he is uncomfortable with any movement of the left leg and left ankle. This patient is responding to questions appropriately and in full sentences. This patient appears well-hydrated and well-nourished. Eyes: Pupils equal and round no pallor or injection. No lid edema, erythema or injection. Left lower extremity exam: He has a 8 cm surgical incision which is well sutured extending from the lateral distal leg, down around the lateral malleolus to the lateral midfoot. There is no obvious drainage. It appears mildly swollen. There is no significant erythema or warmth. The left foot is neurovascularly intact. Respiratory: There are no retractions, lungs are clear to auscultation with good air movement bilaterally. Cardiovascular: Regular rate and rhythm. No murmur. Gastrointestinal: Abdomen is soft and nontender, no masses, bowel sounds normal. No focal tenderness at McBurney's point. No Abraham sign. Neurological: Motor sensory function is grossly intact. Cranial nerves are normal. Gait is normal. Skin: Warm and dry, no rashes. Musculoskeletal: Neck is supple and nontender. Extremities are symmetrical. All joints range without pain or impingement. Psychiatric: No agitation. No depression. Database: EKG: Imaging: MRI of left ankle with and without contrast: Significant for worsening osteomyelitis. There is a draining wound with fluid tracking along the peroneal tendon a draining through the skin. There is new involvement of the calcaneus. Results were discussed with staff radiologist Dr. Edgard Cerda. Procedures: Emergency department course: Vital signs reviewed and are normal. The patient is afebrile. I spoke with Jesenia, physician switchboard operator assistant for Dr. Ritesh Brown. She is familiar with this patient. She requests that we get the MRI with and without contrast. I will then call her with results. Likely plan will be to have the patient seen by Dr. Brown in his office tomorrow morning to reviewed the results of the MRI and further evaluation and management. 5:20 p.m., patient re-evaluated. Appears comfortable at this time. Results of his MRI discussed. 5:25 p.m., spoke with physician assistant aB for Dr. Venu Brown. Results of MRI discussed. Plan will be for them to see this patient in the morning to be evaluated by Dr. Brown with surgery either tomorrow afternoon or Wednesday for further washout and debridement. 5:30 p.m., patient re-evaluated. Pain is currently well controlled. Discussed plan for follow-up with Dr. Venu Brown tomorrow morning for evaluation and likely operative debridement as noted. He is in agreement. He has plenty of pain medication and does not need anymore. He has is antibiotics. He understands his follow-up. Return to emergency department precautions reviewed with him. All of his questions were answered. He was discharged in good condition. Differential Diagnosis: The differential diagnosis on this patient includes but is not limited to left ankle surgical infection, osteomyelitis. Necrotizing fasciitis unlikely. This represents a partial list of diagnoses considered. These considerations are based on history, physical exam, past history, reassessment and diagnostic testing. Smoking Status: Never smoked Constitutional: Initial Vital Signs Temperature (C) 36.4 C 11/14/17 14:57 Heart Rate 90 11/14/17 14:57 Respiratory Rate 18 11/14/17 14:57 Blood Pressure 115/78 11/14/17 14:57 O2 Sat (%) 95 11/14/17 14:57 O2 Delivery Mode Room Air Allergies/Adverse Reactions: No Known Allergies Allergy (Verified 10/27/17 00:48) Home Medications: Medication Instructions Recorded Pregabalin [Lyrica 150mg (*)] 150 mg PO BID 10/24/17 Desipramine HCl [Norpramin 10 mg 10 - 20 mg PO HS PRN 10/29/17 (*)] [id number] Compounded Cream 1 - 3 g TP Q6-8PRN PRN 10/29/17 Pregabalin [Lyrica 75mg (*)] 75 mg PO BID 10/29/17 Sildenafil Citrate [Viagra] 100 mg PO DAILY PRN 10/29/17 Acetaminophen [Tylenol 325mg (*)] 650 mg PO Q4HRS PRN tab 11/02/17 Ertapenem [INVanz] 1 gm IV DAILY vial 11/02/17 oxyCODONE IR [Oxycodone Ir (*)] 5 - 10 mg PO Q3HRS PRN #40 tab 11/02/17 Departure - Departure Disposition: Home, Routine, Self-Care Clinical Impression: Left ankle surgical site infection, Osteomyelitis Condition: Good Instructions: Osteomyelitis (ED), Wound Infection (ED) Additional Instructions: Read and follow provided instructions. Follow-up with Dr. Ritesh Brown as discussed tomorrow morning. His physician switchboard operator assistant told me that they would call you in the morning for appointment time. You will likely undergo another surgical procedure to clean and further treat your wound tomorrow afternoon or Wednesday. Continue your antibiotics and pain medications as prescribed. Return to the emergency department for worsening symptoms, uncontrolled pain, fever or other serious concerns. Referrals: Ritesh Brown MD [Medical Doctor] - As per Instructions
[2017-11-14] MEDS ORDERED: GADOBUTROL 10 ML VIAL IVP ONE (16:19)
[2017-11-14 17:56] VITALS: BP 118/80; PULSE 72; TEMP 98.8; O2SAT 96
== END 2017-11-14 17:54 | disposition home or self-care (01) ==
DX: T81.4XXA Infection following a procedure, initial encounter (principal); M86.9 Osteomyelitis, unspecified; Y82.8 Other medical devices associated with adverse incidents
CPT/HCPCS: A9585

== ENCOUNTER 2017-12-29 11:25 | Emergency (ER) | payer OTHER ==
[2017-12-29] MEDS ORDERED: ONDANSETRON 4 MG/2 ML VIAL IVP ONE (12:30)
[2017-12-29] MEDS ORDERED: NS 1,000 ML IV ONE ×2 (12:30→13:07)
--- NOTE | 2017-12-29 12:30 | EDPHY ---
HPI/HX/ROS/PE/MDM Narrative: CHIEF COMPLAINT: Nausea, possible syncope HPI: This patient is a 62 y/o male presenting following a possible syncopal episode last night. He woke on the floor next to his bed this morning and thinks he may have fainted coming back from the bathroom. He does not remember the incident. He denies hitting his head or any other trauma or pain. The patient underwent a left leg peroneal tendon repair on July 19, 2017. His recovery has been complicated by abscess and osteomyelitis to the surgical site. He was admitted in October, for surgical incision and repair, and is followed by Dr. Brown, surgeon, and Dr. Medina, infectious disease specialist. He has a PICC line in place and has been on a daily Ertapenem infusion. Two days ago, the patient began feeling nauseous. He has been unable to eat or drink due to lack of appetite and vomiting. Today, he went to his weekly appointment at the [facility]. He described his symptoms and felt weak as if he might faint again. Providers there recommended he present to the emergency department for further evaluation. Patient denies fever, chest pain, shortness of breath, urinary complaints, or other associated symptoms. REVIEW OF SYSTEMS: Aside from elements discussed in the HPI, a comprehensive 10-point review of systems was reviewed and is negative. 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 Hernia. Diverticulitis. Left leg DVT. History of left leg fracture. SOCIAL HISTORY: No alcohol or tobacco use. Single. Lives in [place]. PHYSICAL EXAM: General:Patient is alert, in no acute distress. ENT:Eyes are normal to inspection. ENT inspection normal. Neck: Normal inspection. Full range of motion. Respiratory:No respiratory distress. Breath sounds normal bilaterally. Cardiovascular: Regular rate and rhythm. Strong peripheral pulses. Normal cap refill. Abdomen:The abdomen is nontender to palpation. There are no peritoneal signs. There are normal bowel sounds. Back: Normal to inspection. No tenderness to palpation. Skin: Normal color. No rash. Warm and dry. Extremities: PICC line in place in right arm. Wound vac on left ankle. Full range of motion. Neuro: Oriented x3. Normal motor function. Normal sensory function. ED Course: 62 y/o male with ongoing joint infection and osteomyelitis of the calcaneocuboid joint presents with three day history of nausea and following a possible syncopal episode. The patient has a PICC line in place as well as a wound vac over his left ankle. Plan for labs including CBC, chemistries, troponin, liver, lipase, UA. Plan to administer 4mg IV Zofran and 1L IV NS for symptom relief. Reviewed laboratory studies. Troponin negative. No signs of systemic infection, renal failure, or acute electrolyte abnormalities. Plan to administer an additional 1L IVF. 14:10 Reassessed patient, discussed results. Patient would like to be discharge home and declines any further tests. He will follow up with primary care and with the wound clinic per his regular follow-up schedule. Plan to discharge home in good condition with prescription for Zofran for nausea relief. He is comfortable with this plan. - Data Points Laboratory Results: Laboratory Results 12/29/17 12:25 12/29/17 12:25 12/29/17 12/29/17 12/29/17 12:50 12:25 12:25 WBC 6.52 10^3/uL 10^3/uL (3.80-9.50) RBC 4.32 10^6/uL L 10^6/uL (4.40-6.38) Hgb 13.3 g/dL L g/dL (13.7-17.5) Hct 38.0 % L % (40.0-51.0) MCV 88.0 fL fL (81.5-99.8) MCH 30.8 pg pg (27.9-34.1) MCHC 35.0 g/dL g/dL (32.4-36.7) RDW 13.4 % % (11.5-15.2) Plt Count 296 10^3/uL 10^3/uL (150-400) MPV 8.0 fL L fL (8.7-11.7) Neut % (Auto) 62.7 % % (39.3-74.2) Lymph % (Auto) 24.1 % % (15.0-45.0) [place] % (Auto) 10.7 % % (4.5-13.0) Eos % (Auto) 0.8 % % (0.6-7.6) Baso % (Auto) 1.2 % % (0.3-1.7) Nucleat RBC Rel Count 0.0 % % (0.0-0.2) Absolute Neuts (auto) 4.09 10^3/uL 10^3/uL (1.70-6.50) Absolute Lymphs (auto) 1.57 10^3/uL 10^3/uL (1.00-3.00) Absolute Monos (auto) 0.70 10^3/uL 10^3/uL (0.30-0.80) Absolute Eos (auto) 0.05 10^3/uL 10^3/uL (0.03-0.40) Absolute Basos (auto) 0.08 10^3/uL 10^3/uL (0.02-0.10) Absolute Nucleated RBC 0.00 10^3/uL 10^3/uL (0-0.01) Immature Gran % 0.5 % % (0.0-1.1) Immature Gran # 0.03 10^3/uL 10^3/uL (0.00-0.10) Sodium 141 mEq/L mEq/L (135-145) Potassium 3.5 mEq/L mEq/L (3.5-5.2) Chloride 105 mEq/L mEq/L (97-110) Carbon Dioxide 23 mEq/l mEq/l (22-31) Anion Gap 13 mEq/L mEq/L (8-16) BUN 18 mg/dL mg/dL (7-23) Creatinine 0.9 mg/dL mg/dL (0.7-1.3) Estimated GFR > 60 Glucose 87 mg/dL mg/dL (70-100) Calcium 9.1 mg/dL mg/dL (8.5-10.4) Total Bilirubin 0.9 mg/dL mg/dL (0.1-1.4) Conjugated Bilirubin 0.4 mg/dL mg/dL (0.0-0.5) Unconjugated Bilirubin 0.5 mg/dL mg/dL (0.0-1.1) AST 35 IU/L IU/L (17-59) ALT 70 IU/L IU/L (21-72) Alkaline Phosphatase 163 IU/L H IU/L (38-126) Troponin I < 0.012 ng/mL ng/mL (0.000-0.034) Total Protein 7.1 g/dL g/dL (6.3-8.2) Albumin 4.1 g/dL g/dL (3.5-5.0) Lipase 295 IU/L IU/L (23-300) Medications Given: Discontinued Medications Sodium Chloride (Ns) 1,000 mls @ 0 mls/hr IV EDNOW ONE; Wide Open PRN Reason: Protocol Stop: 12/29/17 12:31 Last Admin: 12/29/17 12:45 Dose: 1,000 mls Sodium Chloride (Ns) 1,000 mls @ 0 mls/hr IV EDNOW ONE; Wide Open PRN Reason: Protocol Stop: 12/29/17 13:08 Last Admin: 12/29/17 13:56 Dose: 1,000 mls Ondansetron HCl (Zofran) 4 mg IVP EDNOW ONE Stop: 12/29/17 12:31 Last Admin: 12/29/17 12:53 Dose: 4 mg General Time Seen by Provider: 12/29/17 12:19 Initial Vital Signs: Initial Vital Signs Temperature (C) 36.1 C 12/29/17 11:30 Heart Rate 89 12/29/17 11:30 Respiratory Rate 20 12/29/17 11:30 Blood Pressure 128/83 H 12/29/17 11:30 O2 Sat (%) 99 12/29/17 11:30 O2 Delivery Mode Room Air Allergies/Adverse Reactions: No Known Allergies Allergy (Verified 12/29/17 11:27) Home Medications: Medication Instructions Recorded Antiobitoic 12/29/17 Meropenem 12/29/17 Ondansetron Odt [Zofran Odt] 4 mg PO Q4PRN PRN #10 tab 12/29/17 Departure - Departure Disposition: Home, Routine, Self-Care Clinical Impression: Dehydration, Nausea Ankle wound Qualifiers: Encounter type: sequela Laterality: left Qualified Code(s): S91.002S - Unspecified open wound, left ankle, sequela Condition: Good Instructions: Dehydration (ED), Acute Nausea and Vomiting (ED) Additional Instructions: 1. Follow up with your primary care provider in 2-3 days. 2. Take Zofran as prescribed as needed for nausea. 3. Stay well hydrated. Introduce bland foods as tolerated. 4. Return to the emergency department for fainting, uncontrollable vomiting, fever, chest pain, shortness of breath, or other worsening of condition. Referrals: Zac Ham MD [Primary Care Provider] - As per Instructions Prescriptions: Ondansetron Odt [Zofran Odt] 4 mg PO Q4PRN PRN #10 tab PRN Reason: Nausea Report Scribed for: Enrique Delvalle Report Scribed by: Lorena Chawla Date of Report: 12/29/17 Time of Report: 12:30 Physician Review and Approval Statement: Portions of this note were transcribed by an ED scribe. I personally performed the history, physical exam, and medical decision making; and confirm the accuracy of the information in the transcribed note.
[2017-12-29 12:36] LABS: PLATELET COUNT 296 10^3/uL (150-400)
[2017-12-29 14:50] VITALS: BP 124/69
== END 2017-12-29 14:55 | disposition home or self-care (01) ==
DX: R11.0 Nausea (principal); E86.0 Dehydration; E86.9 Volume depletion, unspecified
CPT/HCPCS: 96374; J2405

== ENCOUNTER 2018-09-30 05:23 | Emergency (ER) | payer OTHER ==
--- NOTE | 2018-09-30 05:36 | EDPHY ---
H & P - Personal History Tetanus Vaccine Date: within 10 yrs - Medical/Surgical History Hx Asthma: No Hx Chronic Respiratory Disease: No Hx Diabetes: No Hx Cardiac Disease: No Hx Renal Disease: No Hx Cirrhosis: No Hx Alcoholism: No Hx HIV/AIDS: No Hx Splenectomy or Spleen Trauma: No Other PMH: PSH: hernia; L leg fx; B eye, L leg DVT. PMH: diverticulitis - Social History Smoking Status: Never smoked Time Seen by Provider: 09/30/18 05:31 HPI/ROS: Chief Complaint: Nausea and vomiting HPI: 62-year-old male woke this morning with sudden onset nausea vomiting. No blood in his emesis. No dark tarry stools. No abdominal pain. He is also complaining of some chills. No recent illness. No known exposures. No cough. No malaise. No fatigue. Has a history of chronic pain for which she takes oxycodone daily. There been no changes to his regimen. He has not missed any of his medications. EMS gave him 8 mg of Zofran and a L fluid. Patient is not complaining of feeling cold and having some nausea. ROS: 10 systems were reviewed and were negative except those elements noted in the HPI. PMH: Leg abscess Social History: Positive smoking Family History: non-contributory Physical Exam: Gen: Awake, Alert, No Distress HEENT: Nose: no rhinorrhea Eyes: PERRLA, EOMI Mouth: Moist mucosa Neck: Supple, no JVD Chest: nontender, lungs clear to auscultation Heart: S1, S2 normal, no murmur Abd: Soft, non-tender, no guarding Back: no CVA tenderness, no midline tenderness Ext: no edema, non-tender Skin: no rash Neuro: CN II-XII intact, Sensation grossly intact, Strength 5/5 in bilateral upper and lower extremities (Sixto Sanon) Constitutional: Initial Vital Signs Temperature (C) 36.9 C 09/30/18 05:15 Heart Rate 71 09/30/18 05:15 Respiratory Rate 18 09/30/18 05:15 Blood Pressure 117/71 09/30/18 05:15 O2 Sat (%) 99 09/30/18 05:15 O2 Delivery Mode Room Air Allergies/Adverse Reactions: No Known Allergies Allergy (Verified 05/10/18 12:01) Home Medications: Medication Instructions Recorded Nexium 05/11/18 Ondansetron Odt [Zofran Odt 4 mg 4 mg PO Q4 PRN #10 tab 09/30/18 (RX)] Medical Decision Making ED Course/Re-evaluation: 62-year-old male presenting with acute onset of nausea vomiting. He has a soft benign abdomen. No abdominal pain. Laboratory evaluations are unremarkable. He has received Zofran and fluids by EMS. Still continuing complain of nausea. I have ordered Phenergan for him IV. Will continue to hydrate and reassess. No evidence of acute surgical process. Patient signed out to Dr. Simon pending improvement in his symptoms. (Sixto Sanon) Other Provider: I assumed care of this patient from Dr. Sanon at 7:00 a.m.. At that time he had received a dose of Phenergan. When I evaluated him at 8:45 a.m. He was complaining of continued nausea. He has not had vomiting in the department. Earlier he was feeling tremulous. He continues to feel somewhat chilled and tremulous and I note that he is tachypneic at the time of my exam. He does not feel short of breath and his lungs are clear. He denies abdominal pain and his abdomen is soft and nontender. In further interviewing, he tells me he takes 2 tablets of 10/325 oxycodone in the morning. He did not take yesterday's dose and he has not taken today's dose. He takes the oxycodone for regional pain syndrome--he reports chronic continuous ankle pain following an injury. He states that his prescriptions are written by Dr. Ham workman's comp. I wonder if he is withdrawing from opioids. He received Dilaudid 0.5 mg IV. He was continued to complain of nausea, He received Zofran 4 mg IV. He seemed anxious and agitated, and I wondered If he might be experiencing akathisia after the Phenergan. He was given Benadryl 25 mg IV. I re-evaluated him at 10 AM. He continues to be tachypneic. With further questioning it is my impression that he is confused. He is able to tell me his name, where he is, but cannot provide a reason for coming to the hospital. When asked why he is here he starts the sentence but cannot finish or finishes with an answer that does not make sense. His speech is fluent. He is moving all 4 extremities easily and equally. Pupils are equal. Facial expressions are symmetric. Tongue is midline. Aside from his ankle injury and subsequent infection, he has no known medical problems. I reviewed the labs that were done earlier this morning. His white blood cell count is very mildly elevated. His glucose is slightly elevated, just over 100. However, I remain concerned about what seems to be an altered mental status. Patient was serially evaluated when under my care, evaluations at least hourly if not more frequently. At noon and again at 1:00 p.m. I spoke with him and his mental status was entirely clear--he was alert and oriented X 4. He has been able to tolerate ice chips. At noon I decided to observe him for while longer just to make certain that he had no further problems and at 1:00 p.m. he continued to be alert, fully oriented, and stated that he feels that he can safely return home. He tells me that he does have his oxycodone at and has not run out of his medication. There is some concern on his part about a seizure last night (because he was tremulous, "shaking") but as best I can discover, not have a seizure last night and does not have a seizure disorder. He did not lose consciousness last night. Vital signs are normal at discharge. (Melissa Simon) - Data Points Laboratory Results: Laboratory Results 09/30/18 05:45 09/30/18 05:45 Medications Given: Discontinued Medications Acetaminophen (Tylenol) 1,000 mg PO EDNOW ONE Stop: 09/30/18 05:51 Last Admin: 09/30/18 05:52 Dose: 1,000 mg Diphenhydramine HCl (Benadryl Injection) 25 mg IVP EDNOW ONE Stop: 09/30/18 09:28 Last Admin: 09/30/18 09:28 Dose: 25 mg Hydromorphone HCl (Dilaudid) 0.5 mg IVP EDNOW ONE Stop: 09/30/18 09:04 Last Admin: 09/30/18 09:15 Dose: 0.5 mg Sodium Chloride (Ns) 1,000 mls @ 0 mls/hr IV EDNOW ONE; Wide Open PRN Reason: Protocol Stop: 12/28/18 05:50 Last Admin: 09/30/18 05:52 Dose: 1,000 mls Sodium Chloride (Ns) 1,000 mls @ 0 mls/hr IV EDNOW ONE; Wide Open PRN Reason: Protocol Stop: 09/30/18 05:51 Last Admin: 09/30/18 05:52 Dose: 1,000 mls Ondansetron HCl (Zofran) 4 mg IVP EDNOW ONE Stop: 09/30/18 09:04 Last Admin: 09/30/18 09:15 Dose: 4 mg Promethazine HCl (Phenergan) 25 mg IVP EDNOW ONE Stop: 09/30/18 06:20 Last Admin: 09/30/18 06:24 Dose: 25 mg Point of Care Test Results: Chemistry 09/30/18 11:09 POC Sodium 144 mEq/L mEq/L (135-145) POC Potassium 3.3 mEq/L mEq/L (3.3-5.0) POC Chloride 110 mEq/L mEq/L (97-110) POC BUN 10 mg/dL mg/dL (7-23) POC Creatinine 0.6 mg/dL L mg/dL (0.7-1.3) POC Glucose 138 mg/dL H mg/dL (70-100) ISTAT H&H 09/30/18 11:09 POC Hgb 14.6 gm/dL gm/dL (13.7-17.5) POC Hct 43 % % (40-51) Departure - Departure Disposition: Home, Routine, Self-Care Clinical Impression: Vomiting Qualifiers: Vomiting type: unspecified Vomiting Intractability: non-intractable Nausea presence: with nausea Qualified Code(s): R11.2 - Nausea with vomiting, unspecified Condition: Good Instructions: Acute Nausea and Vomiting (ED) Additional Instructions: Take your medication as prescribed. I am referring you to a primary care provider, as you do not have one. If you have further nausea vomiting, developed abdominal pain, developed diarrhea, have fever, any new or concerning symptoms--please be re-evaluated. Referrals: Katty Terry MD [[facility] Primary Care Provider] - As per Instructions Prescriptions: Ondansetron Odt [Zofran Odt 4 mg (RX)] 4 mg PO Q4 PRN #10 tab PRN Reason: nausea
[2018-09-30] MEDS ORDERED: ACETAMINOPHEN 500 MG TAB ONE (05:47)
[2018-09-30] MEDS ORDERED: NS 1,000 ML IV ONE ×2 (05:49→05:50)
[2018-09-30] MEDS ORDERED: ACETAMINOPHEN 500 MG TAB PO ONE (05:50)
[2018-09-30] MEDS ORDERED: PROMETHAZINE HCL 25 MG/ML INJ IVP ONE (06:19)
[2018-09-30 06:20] LABS: PLATELET COUNT 289 10^3/uL (150-400)
[2018-09-30] MEDS ORDERED: ONDANSETRON 4 MG/2 ML VIAL IVP ONE (09:03)
[2018-09-30] MEDS ORDERED: HYDROmorphONE/DILAUDID 2 MG/ML INJ IVP ONE (09:03)
[2018-09-30 13:12] VITALS: BP 136/65
== END 2018-09-30 13:15 | disposition home or self-care (01) ==
LOC: EDUNIT#
DX: R11.2 Nausea with vomiting, unspecified (principal)
CPT/HCPCS: 82435-PO; 82565-PO; 82947-PO; 84132-PO; 84295-PO; 84520-PO; 85014-PO; 96374; J1170; J1200; J2405; J2550